=== PATIENT | male | born 1950 | race Caucasian/White ===

== ENCOUNTER → 2016-08-03 | Outpatient (CLI) | payer MEDICARE, OTHER ==
--- NOTE | 2016-08-03 19:49 | MR ---
MR right hip HISTORY: Limited range of motion, pain Multiplanar multisequence imaging obtained through the pelvis with small [id number]-ao-cryn imaging throug h the right hip. No comparisons Large hydroceles are noted incidentally within the scrotum. There is abnormal fluid signal present within the level of the origin of the hamstring conjoined tend on, areas of abnormal increased signal present within the tendon compatible with tendinopathy and pos sibly partial tear, avulsion injury. No sizable hip effusion. Suspect articular cartilage signal is m aintained. Difficult to exclude labral tear, there are areas of abnormal increased signal involving t he acetabulum laterally compatible with geode formation, there may be degenerative signal within the acetabular michelle, para labral cyst on the right suggesting labral tear. Cystic focus present in the r ight hemipelvis measures approximately 3.2 cm which may represent Hutch diverticulum. Bone marrow sig nal is maintained. IMPRESSION: Tear of the conjoined tendon, correlate for avulsion injury of the hamstring musculature on the right. Possible labral tear as described. Bilateral hydroceles.
== END | disposition home or self-care (01) ==
LOC: RADMRIMAIN 11:56
PROVIDERS: ATTEND Orthopaedic Surgery
DX: S76.011A Strain of muscle, fascia and tendon of right hip, initial encounter (principal)

== ENCOUNTER → 2016-10-05 | Outpatient (CLI) | payer MEDICARE, OTHER ==
[2016-10-05 14:01] LABS: Blood Urea Nitrogen 16 mg/dL (9-20); Non-African American GFR(MDRD) >60 (>60 ml/min/1.73 sqM)
--- NOTE | 2016-10-05 15:00 | CT ---
EXAMINATION TYPE: CT soft tissue neck w con DATE OF EXAM: 10/05/2016 2:51 PM HISTORY: Lymphadenopathy per order, neck swelling. COMPARISON: NONE CT DLP: A 93.3 mGycm. Automated Exposure Control for Dose Reduction was Utilized. TECHNIQUE: CT scan of the neck is performed with IV Contrast, patient injected with 100 mL of Omnipa que 300, axial images are obtained, coronal and sagittal reformatted images are reviewed. FINDINGS: Airway: Mild underlying emphysematous change in lung apices is seen. Parotid/submandibular glands: Metallic BBs are placed at level of palpable abnormality bilateral sub mandibular region and show no worrisome solid or cystic mass or fluid collection at this level. No laird spicious adenopathy is present. There are symmetric and normal-appearing submandibular glands noted a t this level. Parotid glands are symmetric and felt unremarkable bilaterally. Carotid/Vascular Structures: There is moderate mixed plaque at bilateral carotid bulbs slightly more prominent on the right versus left side, no greater than 50% stenosis in either internal carotid rajan ry is seen. Osseous Structures: There is moderate to severe spurring and disc space narrowing at C5-C6 and C6-C7 levels. Other: There are some scattered subcentimeter lymph nodes throughout the neck bilaterally. No suspici ous greater than 1 cm neck adenopathy is clearly seen. IMPRESSION: No worrisome mass or adenopathy is clearly identified.
== END | disposition home or self-care (01) ==
LOC: RADCTMAIN 13:07
PROVIDERS: ATTEND Surgery
DX: R59.1 Generalized enlarged lymph nodes (principal)
CPT/HCPCS: 82565; 84520; 70491; 36415; Q9967

== ENCOUNTER 2017-02-09 13:14 | Emergency (ER) | payer MEDICARE, OTHER ==
[2017-02-09 13:30] VITALS: RESP 18
--- NOTE | 2017-02-09 14:05 | ED ---
General Adult HPI - General Chief complaint: Wound/Laceration Stated complaint: post op incision problem/Male Time Seen by Provider: 02/09/17 13:55 Source: patient, RN notes reviewed Mode of arrival: wheelchair Limitations: no limitations - History of Present Illness Initial comments: Patient is a 66-year-old male status post testicular surgery that occurred 10 days ago, who presents emergency room today with a chief complaint of one of the stitches popping and having some bleeding from the area. He does admit that he had a hydrocele repaired on the left testicle.. Also admits that he had a sperm cyst removed on the right. He states that today he noticed that he' s had some more bleeding coming from the left side of the scrotum. States feels like a dissolving states may have dissolved too quickly. Denies any other complaints or symptoms at this time. He states he has been able to control bleeding noted at this time is no longer bleeding. Does admit that he takes Effient at home Patient denies any recent fever, chills, shortness of breath, chest pain, back pain, abdominal pain, nausea or vomiting, numbness or tingling, dysuria or hematuria, constipation or diarrhea, headaches or visual changes, or any other complaints. - Related Data Home Medications Medication Instructions Recorded Confirmed Cholecalciferol [Vitamin D3] 1,000 unit PO DAILY 11/25/15 01/02/16 Glucosam/Abebe-Msm1/C/Terry/Bosw 1 tab PO DAILY 11/25/15 01/02/16 [Glucosamine-Chondroitin Tablet] Vitamin B Complex 1 cap PO DAILY 11/25/15 01/02/16 Vitamin E 100 unit PO DAILY 11/25/15 01/02/16 Calcium Carbonate [Calcium] 600 mg PO DAILY 01/02/16 01/02/16 Cod Liver Oil 1 cap PO DAILY 01/02/16 01/02/16 Cysteine HCl [l-Cysteine] 500 mg PO DAILY 01/02/16 01/02/16 Aspirin 81 mg PO BID 02/09/17 02/09/17 Previous Rx's Medication Instructions Recorded Prasugrel [Effient] 10 mg PO DAILY #90 tablet 01/03/16 Allergies Allergy/AdvReac Type Severity Reaction Status Date / Time clopidogrel [From Plavix] Allergy Severe Anaphylaxis Verified 02/09/17 14:09 Review of Systems ROS Statement: Those systems with pertinent positive or pertinent negative responses have been documented in the HPI. ROS Other: All systems not noted in ROS Statement are negative. Past Medical History Past Medical History: COPD, Hypertension Additional Past Medical History / Comment(s): chest pain History of Any Multi-Drug Resistant Organisms: None Reported Past Surgical History: Prostate Surgery Additional Past Surgical History / Comment(s): left shoulder Past Psychological History: No Psychological Hx Reported Smoking Status: Former smoker Past Alcohol Use History: None Reported Past Drug Use History: None Reported - Past Family History Brother(s) Family Medical History: Cancer Additional Family Medical History / Comment(s): PROSTATE Sister(s) Family Medical History: Myocardial Infarction ([place]) Mother Family Medical History: Myocardial Infarction ([place]) Father Family Medical History: CVA/TIA General Exam - General Exam Comments Initial Comments: General: The patient is awake and alert, in no distress, and does not appear acutely ill. Eye: Pupils are equal, round and reactive to light, extra-ocular movements are intact. No nystagmus. There is normal conjunctiva bilaterally. No signs of icterus. Ears, nose, mouth and throat: There are moist mucous membranes and no oral lesions. Neck: The neck is supple, there is no tenderness or JVD. Cardiovascular: There is a regular rate and rhythm. No murmur, rub or gallop is appreciated. Respiratory: Lungs are clear to auscultation, respirations are non-labored, breath sounds are equal. No wheezes, stridor, rales, or rhonchi. Musculoskeletal: Normal ROM, no tenderness. Strength 5/5. Sensation intact. Pulses equal bilaterally 2+. Neurological: A&O x 3. CN II-XII intact, There are no obvious motor or sensory deficits. Coordination appears grossly intact. Speech is normal. Skin: Skin is warm and dry and no rashes or lesions are noted. Psychiatric: Cooperative, appropriate mood & affect, normal judgment. : Patient does have some swelling after surgery to left side of the scrotum. Does have a surgical incision which appears to be healing well. No active bleeding at this time. Small area to the lateral aspect that seems to be slightly dehisced. Limitations: no limitations Course Vital Signs 02/09/17 13:26 Temperature 98.2 F Pulse Rate 65 Respiratory 18 Rate Blood Pressure 101/57 O2 Sat by Pulse 96 Oximetry Medical Decision Making - Medical Decision Making Incision site was closed with Dermabond here in the emergency room. No active bleeding at this time. Patient resting comfortably. Patient is advised follow- up with his neurologist tomorrow. Advised return here to the emergency room symptoms increase or worsen or for any other concerns. Patient states understanding and is in agreement. Disposition Clinical Impression: Postop check Disposition: HOME SELF-CARE Condition: Good Additional Instructions: Please allow the glue to fall off on its own over the next 3-5 days. Please also up with your urologist over the next 1-2 days. Please return here to the emergency room for any other concerns. Referrals: Sahra Galdamez MD [Primary Care Provider] - 1-2 days Jalen Lancaster MD [STAFF PHYSICIAN] - 1-2 days Time of Disposition: 14:22
[2017-02-09] MEDS ORDERED: TOPICAL SKIN ADHESIVE 1 EACH AMP TOPICAL ONE (14:12)
[2017-02-09 14:28] VITALS: BP 159/74; PULSE 53; TEMP 98
== END 2017-02-09 14:29 | disposition home or self-care (01) ==
LOC: EC 13:14
DX: N99.89 Other postprocedural complications and disorders of genitourinary system (principal); Z79.82 Long term (current) use of aspirin; Z79.899 Other long term (current) drug therapy
CPT/HCPCS: 12020; 99283

== ENCOUNTER 2017-02-10 17:02 | Emergency (ER) | payer MEDICARE, OTHER ==
[2017-02-10 17:30] VITALS: RESP 18
[2017-02-10] MEDS ORDERED: TOPICAL SKIN ADHESIVE 1 EACH AMP TOPICAL ONE (17:56)
--- NOTE | 2017-02-10 18:01 | ED ---
General Adult HPI - General Chief complaint: Recheck/Abnormal Lab/Rx Stated complaint: Urogenital Time Seen by Provider: 02/10/17 17:52 Source: patient, RN notes reviewed Mode of arrival: ambulatory Limitations: no limitations - History of Present Illness Initial comments: 66-year-old male presents to the emergency department with a chief complaint of left testicular bleeding. Patient states that he had a hydrocele repair in one of his stitches came out. Patient states he came in yesterday for they put Dermabond on to Dermabond peeled off today. Patient states started to bleed again so he was concerned. Patient states there is no pain or discomfort he denies any swelling or redness around the area. Patient was concerned due to his symptoms so he thought that he should be evaluated.Patient denies any recent fever, chills, shortness of breath, chest pain, back pain, abdominal pain , nausea vomiting, numbness or tingling, dysuria or hematuria, constipation or diarrhea, headaches or visual changes, or any other current symptoms. - Related Data Home Medications Medication Instructions Recorded Confirmed Cholecalciferol [Vitamin D3] 1,000 unit PO DAILY 11/25/15 02/09/17 Glucosam/Abebe-Msm1/C/Terry/Bosw 1 tab PO DAILY 11/25/15 02/09/17 [Glucosamine-Chondroitin Tablet] Vitamin B Complex 1 cap PO DAILY 11/25/15 02/09/17 Vitamin E 100 unit PO DAILY 11/25/15 02/09/17 Calcium Carbonate [Calcium] 600 mg PO DAILY 01/02/16 02/09/17 Cod Liver Oil 1 cap PO DAILY 01/02/16 02/09/17 Cysteine HCl [l-Cysteine] 500 mg PO DAILY 01/02/16 02/09/17 Aspirin 81 mg PO BID 02/09/17 02/09/17 Previous Rx's Medication Instructions Recorded Prasugrel [Effient] 10 mg PO DAILY #90 tablet 01/03/16 Allergies Allergy/AdvReac Type Severity Reaction Status Date / Time clopidogrel [From Plavix] Allergy Severe Anaphylaxis Verified 02/10/17 17:30 Review of Systems ROS Statement: Those systems with pertinent positive or pertinent negative responses have been documented in the HPI. ROS Other: All systems not noted in ROS Statement are negative. Past Medical History Past Medical History: COPD, Hypertension Additional Past Medical History / Comment(s): chest pain History of Any Multi-Drug Resistant Organisms: None Reported Past Surgical History: Prostate Surgery Additional Past Surgical History / Comment(s): left shoulder, hydrocele Past Psychological History: No Psychological Hx Reported Smoking Status: Former smoker Past Alcohol Use History: None Reported Past Drug Use History: None Reported - Past Family History Brother(s) Family Medical History: Cancer Additional Family Medical History / Comment(s): PROSTATE Sister(s) Family Medical History: Myocardial Infarction ([place]) Mother Family Medical History: Myocardial Infarction ([place]) Father Family Medical History: CVA/TIA General Exam Limitations: no limitations General appearance: alert, in no apparent distress Neck exam: Present: normal inspection. Absent: tenderness, meningismus, lymphadenopathy Respiratory exam: Absent: respiratory distress Cardiovascular Exam: Present: regular rate GI/Abdominal exam: Present: soft, normal bowel sounds. Absent: distended, tenderness, guarding, rebound, rigid exam: Present: vertical testicular lie. Absent: normal inspection (Patient does appear to have a healing surgical incision to the left testicle area.), testicular tenderness, urethral discharge, scrotal swelling Neurological exam: Present: alert, oriented X3 Psychiatric exam: Present: normal affect, normal mood Skin exam: Present: warm, dry, intact, normal color. Absent: rash Course Vital Signs 02/10/17 17:25 Temperature 98.3 F Pulse Rate 58 L Respiratory 18 Rate Blood Pressure 108/61 O2 Sat by Pulse 97 Oximetry Procedures - Procedures Initial comment: The area was cleaned and prepped. Dermabond was applied over the area. Patient tolerated well. Medical Decision Making - Medical Decision Making 66-year-old male presents from surgical incision site. This time Dermabond was placed to the area. He discussed care follow-up return parameters all the patient's questions. He stated he understood. Patient will be discharged home. We did discuss close follow-up with his urologist in the morning. Disposition Clinical Impression: Postop check, Bleeding from wound Disposition: HOME SELF-CARE Condition: Stable Instructions: Skin Adhesive Care (ED) Additional Instructions: Please use medication as discussed. Please follow up with family doctor if symptoms have not improved over the next two days. Please return to the emergency room if your symptoms increase or worsen or for any other concerns. Referrals: Sahra Galdamez MD [Primary Care Provider] - 1-2 days Kamer,Xavier, MD [STAFF PHYSICIAN] - 1-2 days Time of Disposition: 18:31
[2017-02-10 18:45] VITALS: BP 113/75; PULSE 57; TEMP 97.4
== END 2017-02-10 18:46 | disposition home or self-care (01) ==
LOC: EC 17:02
DX: N99.820 Postprocedural hemorrhage of a genitourinary system organ or structure following a genitourinary system procedure (principal); Z87.891 Personal history of nicotine dependence; Z79.82 Long term (current) use of aspirin; Z79.899 Other long term (current) drug therapy; Z88.8 Allergy status to other drugs, medicaments and biological substances
CPT/HCPCS: 12020; 99283

== ENCOUNTER 2021-02-01 11:57 | Emergency (ER) | payer MEDICARE, OTHER ==
[2021-02-01 12:20] VITALS: BP 118/64; PULSE 69; RESP 16; TEMP 98.2
[2021-02-01] MEDS ORDERED: predniSONE 50 MG TAB PO STA (13:42)
--- NOTE | 2021-02-01 13:45 | ED ---
General Adult HPI - General Chief complaint: Skin/Abscess/Foreign Body Stated complaint: rash Time Seen by Provider: 02/01/21 12:48 Source: patient, RN notes reviewed, old records reviewed Mode of arrival: ambulatory Limitations: no limitations - History of Present Illness Initial comments: 70-year-old male with a past medical history of COPD, hypertension presents to the emergency room for a chief complaint of rash. Patient reports he has had a generalized distress for 2 months now. States it is on his inner arms and lower legs. States it is in his groin. Patient does not feel it is itching. Patient states this started after his cold that injection. Patient denies any signs of the lips tongue or throat. Denies any new medications. Denies any new detergents or soaps.Patient has no other complaints at this time including shortness of breath, chest pain, abdominal pain, nausea or vomiting, headache, or visual changes. - Related Data Home Medications Medication Instructions Recorded Confirmed Cholecalciferol [Vitamin D3 (25 1,000 unit PO DAILY 11/25/15 02/09/17 Mcg = 1000 Iu)] Glucosam/Abebe-Msm1/C/Terry/Bosw 1 tab PO DAILY 11/25/15 02/09/17 [Glucosamine-Chondroitin Tablet] Vitamin B Complex 1 cap PO DAILY 11/25/15 02/09/17 Vitamin E 100 unit PO DAILY 11/25/15 02/09/17 Calcium Carbonate [Calcium] 600 mg PO DAILY 01/02/16 02/09/17 Cod Liver Oil 1 cap PO DAILY 01/02/16 02/09/17 Cysteine HCl [l-Cysteine] 500 mg PO DAILY 01/02/16 02/09/17 Aspirin 81 mg PO BID 02/09/17 02/09/17 Previous Rx's Medication Instructions Recorded Prasugrel [Effient] 10 mg PO DAILY #90 tablet 01/03/16 predniSONE 50 mg PO DAILY #5 tablet 02/01/21 Allergies Allergy/AdvReac Type Severity Reaction Status Date / Time clopidogrel [From Plavix] Allergy Severe Anaphylaxis Verified 02/01/21 12:20 Review of Systems ROS Statement: Those systems with pertinent positive or pertinent negative responses have been documented in the HPI. ROS Other: All systems not noted in ROS Statement are negative. Past Medical History Past Medical History: COPD, Hypertension Additional Past Medical History / Comment(s): chest pain History of Any Multi-Drug Resistant Organisms: None Reported Past Surgical History: Prostate Surgery Additional Past Surgical History / Comment(s): left shoulder, hydrocele Past Psychological History: No Psychological Hx Reported Smoking Status: Former smoker Past Alcohol Use History: None Reported Past Drug Use History: None Reported - Past Family History Brother(s) Family Medical History: Cancer Additional Family Medical History / Comment(s): PROSTATE Sister(s) Family Medical History: Myocardial Infarction ([place]) Mother Family Medical History: Myocardial Infarction ([place]) Father Family Medical History: CVA/TIA General Exam Limitations: no limitations General appearance: alert, in no apparent distress Head exam: Present: atraumatic, normocephalic, normal inspection Eye exam: Present: normal appearance, PERRL, EOMI. Absent: scleral icterus, conjunctival injection, periorbital swelling ENT exam: Present: normal exam, mucous membranes moist Neck exam: Present: normal inspection, full ROM. Absent: tenderness, meningismus, lymphadenopathy Respiratory exam: Present: normal lung sounds bilaterally. Absent: respiratory distress, wheezes, rales, rhonchi, stridor Cardiovascular Exam: Present: regular rate, normal rhythm, normal heart sounds. Absent: systolic murmur, diastolic murmur, rubs, gallop, clicks GI/Abdominal exam: Present: soft, normal bowel sounds. Absent: distended, tenderness, guarding, rebound, rigid Skin exam: Present: rash (Erythematous papular rash noted on the volar forearms bilaterally as well as in her upper and lower legs. No rash noted on the abdomen or back.) Course Vital Signs 02/01/21 12:17 Temperature 98.2 F Pulse Rate 69 Respiratory 16 Rate Blood Pressure 118/64 O2 Sat by Pulse 96 Oximetry Medical Decision Making - Medical Decision Making Vitals are stable. No constitutional symptoms. We will try patient on a steroid. Recommend that he follow up with dermatology. He will return for any worsening symptoms. Disposition Clinical Impression: Rash Disposition: HOME SELF-CARE Condition: Good Instructions (If sedation given, give patient instructions): Acute Rash (ED) Additional Instructions: Please take steroid as directed. Follow up with dermatology. Return to the emergency room for any worsening symptoms. Prescriptions: predniSONE 50 mg PO DAILY #5 tablet Is patient prescribed a controlled substance at d/c from ED?: No Referrals: Channing Jang MD [STAFF PHYSICIAN] - 1-2 days Time of Disposition: 13:44
== END 2021-02-01 13:52 | disposition home or self-care (01) ==
LOC: EC 11:57
DX: R21 Rash and other nonspecific skin eruption (principal); I10 Essential (primary) hypertension; J44.9 Chronic obstructive pulmonary disease, unspecified; Z88.8 Allergy status to other drugs, medicaments and biological substances; Z87.891 Personal history of nicotine dependence
CPT/HCPCS: 99282; J7512

== ENCOUNTER 2022-05-07 09:55 | Inpatient (IN) | payer MEDICARE ==
[2022-05-07 10:50] LABS: Basophils # (A) 0.1 k/uL (0-0.2); Basophils % (A) 1 %; Eosinophils # (A) 0.2 k/uL (0-0.7); Eosinophils % (A) 3 %; HGB 15.3 gm/dL (13.0-17.5); Lymphocytes # (A) 1.2 k/uL (1.0-4.8); Lymphocytes % (A) 19 %; MCH 31.8 pg (25.0-35.0); MCV 93.6 fL (80.0-100.0); Mean Platelet Volume 8.3; Monocytes # (A) 0.5 k/uL (0-1.0); Monocytes % (A) 8 %; Neutrophils # (A) 4.3 k/uL (1.3-7.7); Neutrophils % (A) 66 %; Platelet Count 216 k/uL (150-450); RBC 4.81 m/uL (4.30-5.90); RDW 12.5 % (11.5-15.5); WBC 6.5 k/uL (3.8-10.6)
[2022-05-07 11:04] LABS: Partial Thromboplastin Time 25.8 sec (22.0-30.0); Prothrombin Time 10.5 sec (9.0-12.0)
[2022-05-07 11:07] LABS: ALT 16 U/L (4-49); AST 20 U/L (17-59); African American GFR (CKD) >90 (>60 ml/min/1.73 sqM); Albumin 4.3 g/dL (3.5-5.0); Alkaline Phosphatase 66 U/L (38-126); Anion Gap 10 mmol/L; Blood Urea Nitrogen 9 mg/dL (9-20); Calcium 8.7 mg/dL (8.4-10.2); Carbon Dioxide 28 mmol/L (22-30); Chloride 101 mmol/L (98-107); Glucose 112 mg/dL (74-99); Non-African American GFR(CKD) 89 (>60 ml/min/1.73 sqM); Potassium 4.5 mmol/L (3.5-5.1); Sodium 139 mmol/L (137-145); Total Bilirubin 0.6 mg/dL (0.2-1.3); Total Protein 6.9 g/dL (6.3-8.2)
--- NOTE | 2022-05-07 11:20 | CT ---
EXAMINATION TYPE: CT brain wo con DATE OF EXAM: 05/07/2022 COMPARISON: None HISTORY: CODE STROKE. Right arm numbness and tingling started this am CT DLP: 1206.00 mGycm Automated exposure control for dose reduction was used. Helical imaging through the brain FINDINGS: There is no hemorrhage or hydrocephalus. Periventricular white matter shows patchy low attenuation. H ead of the caudate on the left, thalamus on the right show focal areas of low-attenuation likely due to small lacunar infarcts. No mass effect. The calvarium is intact. Paranasal sinuses and mastoid air cells as visualized are normal. Cortical atrophy is likely age-related. IMPRESSION: AGE-RELATED CHANGES OF ATROPHY AND PROBABLE CHRONIC SMALL VESSEL ISCHEMIA, CONSIDER BRAIN MRI FOR BET TER EVALUATION INDICATED
--- NOTE | 2022-05-07 11:21 | XR ---
EXAMINATION TYPE: XR chest 2V DATE OF EXAM: 05/07/2022 COMPARISON: Chest x-ray 01/02/2016, CT 10/05/2016 HISTORY: Right arm numbness and tingling TECHNIQUE: Frontal and lateral views of the chest are obtained. FINDINGS: There is no focal air space opacity, pleural effusion, or pneumothorax seen. The cardiac silhouette size is within normal limits. Prominent lung volumes suggest underlying COPD. There is tho racic spondylosis. The aorta is dense. There are overlying leads. The osseous structures are intact. IMPRESSION: No acute cardiopulmonary process. There is underlying emphysema.
--- NOTE | 2022-05-07 11:29 | ED ---
General Adult HPI - General Chief complaint: Neuro Symptoms/Deficit Stated complaint: right arm numbness Time Seen by Provider: 05/07/22 10:08 Source: patient Mode of arrival: wheelchair Limitations: no limitations - History of Present Illness Initial comments: 72 year-old male patient presents to the emergency department for evaluation of right arm weakness. Patient states he woke this morning around 0600 and he was unable to move his right arm. States that sensation was diminished. States after about an hour he was able to move the thumb, then the whole hand, and he has since regained most function. States that his "tricep" feels weak and uncoord inated. He denies any right leg weakness with this. States he was able to walk without difficulty. He was alone and is unsure if his speech or face was affected. He does admit to taking tylenol PM last night and states that he slept in one position all night on the right arm. He denies any headache, dizziness, blurred, or double vision. Patient denies any recent rash, fever, chills, cough, shortness of breath, chest pain, abdominal pain, nausea, vomiting, diarrhea, constipation, back pain, hematuria, dysuria, urinary urgency, urinary frequency, or any other complaints. - Related Data Home Medications Medication Instructions Recorded Confirmed Aspirin 243 mg PO BID 02/09/17 05/07/22 Finasteride [Proscar] 5 mg PO HS 05/07/22 05/07/22 Multivitamins, Thera [Multivitamin 1 tab PO DAILY 05/07/22 05/07/22 (formulary)] Tamsulosin [Flomax] 0.4 mg PO DAILY 05/07/22 05/07/22 Ubidecarenone [Q-Sorb Co Q-10] 200 mg PO DAILY 05/07/22 05/07/22 Allergies Allergy/AdvReac Type Severity Reaction Status Date / Time clopidogrel [From Plavix] Allergy Severe Anaphylaxis Verified 05/07/22 12:41 Review of Systems ROS Statement: Those systems with pertinent positive or pertinent negative responses have been documented in the HPI. ROS Other: All systems not noted in ROS Statement are negative. Past Medical History Past Medical History: COPD, Hypertension Additional Past Medical History / Comment(s): chest pain History of Any Multi-Drug Resistant Organisms: None Reported Past Surgical History: Prostate Surgery Additional Past Surgical History / Comment(s): left shoulder, hydrocele Past Psychological History: No Psychological Hx Reported Smoking Status: Former smoker Past Alcohol Use History: None Reported Past Drug Use History: None Reported - Past Family History Brother(s) Family Medical History: Cancer Additional Family Medical History / Comment(s): PROSTATE Sister(s) Family Medical History: Myocardial Infarction ([place]) Mother Family Medical History: Myocardial Infarction ([place]) Father Family Medical History: CVA/TIA General Exam Limitations: no limitations General appearance: alert, in no apparent distress, other (This is a well- developed, well-nourished adult male patient in no acute distress.) Eye exam: Present: normal appearance, PERRL, EOMI. Absent: scleral icterus, conjunctival injection, periorbital swelling ENT exam: Present: normal exam, normal oropharynx, mucous membranes moist Respiratory exam: Present: normal lung sounds bilaterally. Absent: respiratory distress, wheezes, rales, rhonchi, stridor Cardiovascular Exam: Present: regular rate, normal rhythm, normal heart sounds. Absent: systolic murmur, diastolic murmur, rubs, gallop, clicks GI/Abdominal exam: Present: soft, normal bowel sounds. Absent: distended, tenderness, guarding, rebound, rigid Neurological exam: Present: alert, oriented X3, CN II-XII intact Expanded Speech: Present: fluid speech Cranial nerves: EOM's Intact: Normal, Tongue Deviation: Normal, Nystagmus: No rmal Sensory exam: Upper Extremity Light Touch: Abnormal Right, Lower Extremity Light Touch: Normal Motor strength exam: RUE: 5, LUE: 5, RLE: 5, LLE: 5 Eye Response: (4) open spontaneously Motor Response: (6) obeys commands Verbal Response: (5) oriented Psychiatric exam: Present: normal affect, normal mood Skin exam: Present: warm, dry, intact, normal color. Absent: rash Course Vital Signs 05/07/22 05/07/22 10:00 11:15 Temperature 97.6 F Pulse Rate 70 68 Respiratory 16 20 Rate Blood Pressure 131/70 124/76 O2 Sat by Pulse 99 94 L Oximetry EKG Findings - EKG Comments: EKG Findings:: EKG obtained at 1032 shows sinus bradycardia with a rate of 59, AK interval 159, QRS duration 96, QT 405, QTC 405. No evidence of ST elevation or depression. Medical Decision Making - Medical Decision Making 72 year-old male patient presents for evaluation of right arm weakness. When he woke this morning around 0600 he woke from sleep and his right arm was paralyzed, his function slowly returned over the next couple of hours. Last known well was prior to bed around 11pm. He is unsure if there was any facial involvement or speech difficulty as he was alone. He also admitted that he took Tylenol PM before bed, slept in one position, on the right arm. Upon exam here he exhibits mild right arm drift and altered sensation to the right arm for an NIH of 2. Labs are unremarkable. CT brain and CT angio head and neck were unremarkable. Patient will be admitted for CVA. Differential does include Monday Night Palsy since history does include laying on the arm all night long. Neurology will be consulted. My attending is Dr. Abreu. - Lab Data Result diagrams: 05/07/22 10:43 05/07/22 10:43 Lab Results 05/07/22 05/07/22 05/07/22 Range/Units 10:43 10:43 10:43 WBC 6.5 (3.8-10.6) k/uL RBC 4.81 (4.30-5.90) m/uL Hgb 15.3 (13.0-17.5) gm/dL Hct 45.0 (39.0-53.0) % MCV 93.6 (80.0-100.0) fL MCH 31.8 (25.0-35.0) pg MCHC 34.0 (31.0-37.0) g/dL RDW 12.5 (11.5-15.5) % Plt Count 216 (150-450) k/uL MPV 8.3 Neutrophils % 66 % Lymphocytes % 19 % Monocytes % 8 % Eosinophils % 3 % Basophils % 1 % Neutrophils # 4.3 (1.3-7.7) k/uL Lymphocytes # 1.2 (1.0-4.8) k/uL Monocytes # 0.5 (0-1.0) k/uL Eosinophils # 0.2 (0-0.7) k/uL Basophils # 0.1 (0-0.2) k/uL PT 10.5 (9.0-12.0) sec INR 1.0 (<1.2) APTT 25.8 (22.0-30.0) sec Sodium 139 (137-145) mmol/L Potassium 4.5 (3.5-5.1) mmol/L Chloride 101 (98-107) mmol/L Carbon Dioxide 28 (22-30) mmol/L Anion Gap 10 mmol/L BUN 9 (9-20) mg/dL Creatinine 0.79 (0.66-1.25) mg/dL Est GFR (CKD-EPI)AfAm >90 (>60 ml/min/1.73 sqM) Est GFR (CKD-EPI)NonAf 89 (>60 ml/min/1.73 sqM) Glucose 112 H (74-99) mg/dL Calcium 8.7 (8.4-10.2) mg/dL Total Bilirubin 0.6 (0.2-1.3) mg/dL AST 20 (17-59) U/L ALT 16 (4-49) U/L Alkaline Phosphatase 66 (38-126) U/L Troponin I (0.000-0.034) ng/mL Total Protein 6.9 (6.3-8.2) g/dL Albumin 4.3 (3.5-5.0) g/dL 05/07/22 Range/Units 10:43 WBC (3.8-10.6) k/uL RBC (4.30-5.90) m/uL Hgb (13.0-17.5) gm/dL Hct (39.0-53.0) % MCV (80.0-100.0) fL MCH (25.0-35.0) pg MCHC (31.0-37.0) g/dL RDW (11.5-15.5) % Plt Count (150-450) k/uL MPV Neutrophils % % Lymphocytes % % Monocytes % % Eosinophils % % Basophils % % Neutrophils # (1.3-7.7) k/uL Lymphocytes # (1.0-4.8) k/uL Monocytes # (0-1.0) k/uL Eosinophils # (0-0.7) k/uL Basophils # (0-0.2) k/uL PT (9.0-12.0) sec INR (<1.2) APTT (22.0-30.0) sec Sodium (137-145) mmol/L Potassium (3.5-5.1) mmol/L Chloride (98-107) mmol/L Carbon Dioxide (22-30) mmol/L Anion Gap mmol/L BUN (9-20) mg/dL Creatinine (0.66-1.25) mg/dL Est GFR (CKD-EPI)AfAm (>60 ml/min/1.73 sqM) Est GFR (CKD-EPI)NonAf (>60 ml/min/1.73 sqM) Glucose (74-99) mg/dL Calcium (8.4-10.2) mg/dL Total Bilirubin (0.2-1.3) mg/dL AST (17-59) U/L ALT (4-49) U/L Alkaline Phosphatase (38-126) U/L Troponin I <0.012 (0.000-0.034) ng/mL Total Protein (6.3-8.2) g/dL Albumin (3.5-5.0) g/dL - Radiology Data Radiology results: report reviewed, image reviewed CT angiogram head and neck were obtained. Report was reviewed in its entirety. Impression by Dr. Contreras shows no significant abnormality. Two-view x-ray of the chest is obtained. Report was reviewed in its entirety. Impression by Dr. Contreras shows underlying emphysema. No acute cardiopulmonary process. CT brain without contrast is obtained. Report was reviewed in its entirety. Impression by Dr. Contreras shows age-related changes of atrophy and probable chronic small vessel ischemia, consider brain MRI for better evaluation as ind icated. Disposition Clinical Impression: CVA (cerebral vascular accident) Disposition: ADMITTED IP TO THIS [facility] Condition: Serious Decision to Admit Reason: Admit from EC Decision Date: 05/07/22 Decision Time: 13:02
--- NOTE | 2022-05-07 12:22 | CT ---
EXAMINATION TYPE: CT angio head neck DATE OF EXAM: 05/07/2022 HISTORY: CODE STROKE, Right arm weakness COMPARISON: CT brain same date, CT soft tissue neck 10/05/2016 CT DLP: 728.7 mGycm. Automated Exposure Control for Dose Reduction was Utilized. TECHNIQUE: CTA scan of the head and neck is performed without and with IV Contrast, patient injected with 65 ml mL of Isovue 370, axial images are obtained, coronal and sagittal reformatted images are reviewed. 3D reconstructed images are created on an independent workstation and reviewed. FINDINGS: Carotid/Vascular Structures: The transverse aorta is patent. There are 4 super aortic branch vessels. The innominate, left and right common carotid, left and right subclavian arteries are patent. The ri ght vertebral arteries are patent, vertebral arteries are codominant. There is no evident stenosis of the proximal internal carotid arteries, internal and external carotid arteries are patent. Within the brain anterior and posterior circulation are intact. There is no evident dissection, aneur ysm, stenosis, or embolus. Other: Degenerative disc changes with multilevel foraminal encroachment, uncovertebral joint hypertro phy noted. IMPRESSION: No significant abnormality is seen. NASCET criteria was used in interpretation of this exam?
[2022-05-07] MEDS ORDERED: NALOXONE 0.4 MG/ML 1 ML VIAL IV PRN (12:58)
[2022-05-07] MEDS: FINASTERIDE 5 MG TAB PO SCH (20:08)
--- NOTE | 2022-05-07 21:22 | P.HPIM ---
History of Present Illness H&P Date: 05/07/22 Chief Complaint: Right hand numbness or weakness Patient is a 72-year-old male with a known history of COPD, hypertension, abdominal aortic aneurysm, chronic left shoulder pain and prior history of smoking presents to ER with complaints of right arm weakness and numbness. P atient noticed symptoms as says he woke up this morning around 6 AM and was not improving. After about a couple hours patient was able to move his thumb and hold hand but still having significant weakness and numbness and patient to come to ER. Denied any injury or fall. Patient apparently took Tylenol for along with Benadryl last night and slept 7 hours straight on his right arm. Patient usually wakes up in the middle of the night for urination. Patient also felt very weak in the triceps as well. Denied any complaints of leg weakness. No slurred speech or difficulty speaking. No complaints of prior seizures. No double vision or blurred vision. Next and no fever no chills. No nausea vomiting abdominal pain or diarrhea. No headache or dizziness or lightheadedness. No dysuria or hematuria. . CT head in the ER showed age-related chronic changes and probable chronic small vessel ischemic changes. Consider brain MRI for a better visualization. Chest x-ray showed no acute cardiopulmonary process. Underlying emphysema. CT angiogram showed no underlying segment abnormality. Next an EKG showed sinus bradycardia Laboratory data showed WBC 6.4 hemoglobin 15.3 and platelets 216 Sodium 139 potassium 4.5 chloride 109 bicarb is 28 BUN 9 and creatinine 0.79 blood sugar is 112, troponin 1 negative Review of Systems Constitutional: Patient denies any fever or chills . No generalized weakness or weight loss. Abdomen: Patient denied nausea vomiting and diarrhea and abdominal pain. Cardiovascular: Patient denies any chest pain or short of breath no palpitations. Respiratory: patient denied any cough is from production. No shortness of breath Neurologic: Patient denied any numbness or tingling headache. Right upper extremity weakness and numbness Musculoskeletal: Patient denies any complaints of joint swelling or deformity. Skin: Negative Psychiatric: Negative Endocrine: No heat or cold intolerance. No recent weight gain. Genitourinary: No dysuria or hematuria. All other 14 point ROS negative except the above Past Medical History Past Medical History: COPD, Hypertension Additional Past Medical History / Comment(s): chest pain, abd aortic aneurysm History of Any Multi-Drug Resistant Organisms: None Reported Past Surgical History: Ablation, Heart Catheterization With Stent Additional Past Surgical History / Comment(s): left shoulder, hydrocele, prostate biopsy with cancer - no active tx. Past Anesthesia/Blood Transfusion Reactions: No Reported Reaction Date of Last Stent Placement:: unknown Past Psychological History: No Psychological Hx Reported Additional Psychological History / Comment(s): "anger toward certain people sometimes" Smoking Status: Former smoker Past Alcohol Use History: None Reported Past Drug Use History: None Reported - Past Family History Brother(s) Family Medical History: Cancer Additional Family Medical History / Comment(s): PROSTATE Sister(s) Family Medical History: Myocardial Infarction ([place]) Mother Family Medical History: Myocardial Infarction ([place]) Father Family Medical History: CVA/TIA Medications and Allergies Home Medications Medication Instructions Recorded Confirmed Type Aspirin 243 mg PO BID 02/09/17 05/07/22 History Finasteride [Proscar] 5 mg PO HS 05/07/22 05/07/22 History Multivitamins, Thera [Multivitamin 1 tab PO DAILY 05/07/22 05/07/22 History (formulary)] Tamsulosin [Flomax] 0.4 mg PO DAILY 05/07/22 05/07/22 History Ubidecarenone [Q-Sorb Co Q-10] 200 mg PO DAILY 05/07/22 05/07/22 History Allergies Allergy/AdvReac Type Severity Reaction Status Date / Time clopidogrel [From Plavix] Allergy Severe Anaphylaxis Verified 05/07/22 12:41 Physical Exam Vitals: Vital Signs Temp Pulse Pulse Resp BP BP Pulse Ox 05/07/22 20:00 97.6 F 56 L 16 114/65 96 05/07/22 17:07 97.5 F L 59 L 15 134/78 98 05/07/22 14:00 58 L 20 137/72 96 05/07/22 13:30 60 18 138/79 96 05/07/22 13:00 57 L 20 131/82 95 05/07/22 12:30 63 18 132/79 96 05/07/22 12:15 58 L 20 136/79 95 05/07/22 12:00 60 20 128/83 95 05/07/22 11:45 57 L 18 130/76 95 05/07/22 11:30 53 L 18 127/74 96 05/07/22 11:15 68 20 124/76 94 L 05/07/22 10:00 97.6 F 70 16 131/70 99 Intake and Output 05/07/22 05/07/22 05/07/22 06:59 14:59 22:59 Intake Total 240 Balance 240 Intake: Oral 240 Other: Voiding Method Toilet Weight 92.986 kg 92.986 kg PHYSICAL EXAMINATION: Patient is lying in the bed comfortably, no acute distress, awake alert and oriented.. HEENT: Normocephalic. Neck is supple. Pupils reactive. Nostrils clear. Oral cavity is moist. Neck reveals no JVD, carotid bruits, or thyromegaly. CHEST EXAMINATION: Trachea is central. Symmetrical expansion. Lung lares clear to auscultation and percussion. CARDIAC: Normal S1, S2 with no gallops. No murmurs ABDOMEN: Soft. Bowel sounds normal. No organomegaly. No abdominal bruits. Extremities: reveal no edema. No clubbing or cyanosis Neurologically awake, alert, oriented x3 with well-coordinated movements. Right upper extremity weakness compared to left. Motor strength 5 out of 5. Skin: No rash or skin lesions. Psychiatric: Coperative. Nonsuicidal Musculoskeletal: No joint swelling or deformity. Normal range of motion. Results CBC & Chem 7: 05/07/22 10:43 05/07/22 10:43 Labs: Abnormal Lab Results - Last 24 Hours (Table) 05/07/22 Range/Units 10:43 Glucose 112 H (74-99) mg/dL Thrombosis Risk Factor Assmnt - DVT/VTE Prophylaxis DVT/VTE Prophylaxis: Pharmacologic Prophylaxis ordered - Choose All That Apply Each Risk Factor Represents 2 Points: Age 61-74 years Thrombosis Risk Factor Assessment Total Risk Factor Score: 2 Thrombosis Risk Factor Assessment Level: Low Risk Assessment and Plan Assessment: Right arm weakness and numbness. Rule out acute CVA. CT head and CT angiogram is negative. Thought to be due to prolonged compression while sleeping on the right arm. Hypertension COPD Abdominal aortic aneurysm Coronary artery disease with history of stent placement Prior history of smoking DVT prophylaxis with heparin subcu Plan: Patient will be continued on telemetry monitoring and continue with neuro checks every 4 hourly. Will be carried on aspirin and statins. Neurology was consulted. Complete neurologic workup including MRI of the brain was ordered. Follow-up B12 folate and A1c levels. TSH and lipid panel as well. Continue to monitor closely. Time with Patient: Greater than 30
[2022-05-07] MEDS: HEPARIN SODIUM,PORCINE/PF 5,000 UNIT/0.5 ML SYRINGE SQ SCH (23:59)
[2022-05-08] MEDS: TAMSULOSIN 0.4 MG CAP.ER.24H PO SCH (10:24)
[2022-05-08] MEDS: HEPARIN SODIUM,PORCINE/PF 5,000 UNIT/0.5 ML SYRINGE SQ SCH ×3 (10:24→23:49)
[2022-05-08] MEDS: ASPIRIN 81 MG PO SCH (10:24)
[2022-05-08 11:15] LABS: Chol/HDL Ratio 5.02 Ratio; LDL Cholesterol,Calculated 146.4 mg/dL (0.0-131.0)
[2022-05-08] MEDS: ACETAMINOPHEN TAB 325 MG TAB PO PRN ×2 (13:23→20:34)
--- NOTE | 2022-05-08 14:38 | P.CNNES ---
History of Present Illness Consult date: 05/08/22 Reason for Consult: Stroke History of Present Illness: The patient is a 72-year-old right-handed, male who is seen in neurologic consultation on May 08, 2022, via teleneurology. The patient is being seen because of concerns regarding stroke. Patient reports that he awoke in the morning on the day of presentation to the emergency department with complete paralysis of his right arm. He states that he took a Tylenol PM at bedtime and slept straight through 47 hours, laying on his right arm. He states that after he was up for about an hour he began to notice some movement in his right thumb. Then his fingers began to move. He has continued to have some improvement in the strength and movement of his right arm however it is certainly not back to its baseline. The patient also reports numbness in the arm as well. He feels as if he is having difficulty with coordination of his right arm. He reports having difficulty using his right arm/hand. He reports soreness involving his right shoulder. The patient denies any symptoms in his right leg. His left upper and lower extremity are fine also. The patient denies headache. There are no facial symptoms, no difficulty with speech or swallowing. No change or loss of vision. The patient denies a history of stroke and TIA. The patient does report that he frequently awakens with numbness in his hands. He reports currently experiencing mid back pain. CT scan of the brain was performed in the emergency department. Her is no evidence of acute hemorrhage or infarct. CT angiogram of the head and neck revealed no evidence of significant stenosis or large vessel occlusion. Past Medical History Past Medical History: COPD, Hypertension Additional Past Medical History / Comment(s): chest pain, abd aortic aneurysm History of Any Multi-Drug Resistant Organisms: None Reported Past Surgical History: Ablation, Heart Catheterization With Stent Additional Past Surgical History / Comment(s): left shoulder, hydrocele, prostate biopsy with cancer - no active tx. Past Anesthesia/Blood Transfusion Reactions: No Reported Reaction Date of Last Stent Placement:: unknown Past Psychological History: No Psychological Hx Reported Additional Psychological History / Comment(s): "anger toward certain people sometimes" Smoking Status: Former smoker Past Alcohol Use History: None Reported Past Drug Use History: None Reported - Past Family History Brother(s) Family Medical History: Cancer Additional Family Medical History / Comment(s): PROSTATE Sister(s) Family Medical History: Myocardial Infarction ([place]) Mother Family Medical History: Myocardial Infarction ([place]) Father Family Medical History: CVA/TIA Medications and Allergies Home Medications Medication Instructions Recorded Confirmed Type Aspirin 243 mg PO BID 02/09/17 05/07/22 History Finasteride [Proscar] 5 mg PO HS 05/07/22 05/07/22 History Multivitamins, Thera [Multivitamin 1 tab PO DAILY 05/07/22 05/07/22 History (formulary)] Tamsulosin [Flomax] 0.4 mg PO DAILY 05/07/22 05/07/22 History Ubidecarenone [Q-Sorb Co Q-10] 200 mg PO DAILY 05/07/22 05/07/22 History Allergies Allergy/AdvReac Type Severity Reaction Status Date / Time clopidogrel [From Plavix] Allergy Severe Anaphylaxis Verified 05/07/22 12:41 Physical Examination - Vital Signs Vital Signs: Vital Signs Temp Pulse Pulse Resp BP BP Pulse Ox 05/08/22 04:00 97.9 F 56 L 16 112/67 95 05/08/22 01:57 58 L 18 05/08/22 00:00 58 L 18 122/67 98 05/07/22 20:00 97.6 F 56 L 16 114/65 96 05/07/22 17:07 97.5 F L 59 L 15 134/78 98 05/07/22 14:00 58 L 20 137/72 96 05/07/22 13:30 60 18 138/79 96 05/07/22 13:00 57 L 20 131/82 95 05/07/22 12:30 63 18 132/79 96 05/07/22 12:15 58 L 20 136/79 95 05/07/22 12:00 60 20 128/83 95 05/07/22 11:45 57 L 18 130/76 95 05/07/22 11:30 53 L 18 127/74 96 05/07/22 11:15 68 20 124/76 94 L 05/07/22 10:00 97.6 F 70 16 131/70 99 Intake and Output 05/07/22 05/08/22 05/08/22 22:59 06:59 14:59 Intake Total 240 118 Balance 240 118 Intake: Oral 240 118 Other: Voiding Method Toilet Toilet # Voids 2 Weight 92.986 kg Gen.: The patient is reclining in the bed. He is well-nourished, well-developed and in no acute distress. HEENT: Head is atraumatic, normocephalic. Fundus not visualized. There is no scleral icterus. Mucous membranes are moist. Neck: Supple without carotid bruits Heart: Regular rate and rhythm Extremities: Without edema Neurological examination Mental status: The patient is awake, alert and oriented 3. His speech is clear. There is no dysarthria or aphasia. Cranial nerves: Pupils are equal at 1 mm and reactive. Visual lares are full to confrontation. Extraocular movements are intact. There is no nystagmus. There is diminished sensation to light touch in the left V2 distribution. There is no facial asymmetry. Hearing is grossly intact. Uvula and palate are midline. Shoulder shrug is symmetric. Tongue protrudes midline. Motor: Strength in the bilateral biceps, triceps, deltoid and wrist extensors is 5/5. Right senior business manager strength 5-/5. Bilateral lower extremity strength 5/5. Coordination: There is tremor and ataxia with [id number] testing, right > Left Sensation: Grossly intact to light touch throughout Deep tendon reflexes: Right upper extremity reflexes 2+/4+. Left upper extremity reflexes 1+/4+. Right patellar reflex 3+/4+. Left patellar reflex 1- 2+/4+. Left plantar response is flexor with the right being equivocal. Gait: Not assessed Results - Laboratory Findings CBC and BMP: 05/07/22 10:43 05/07/22 10:43 Abnormal Lab Findings: Abnormal Labs 05/07/22 10:43 Glucose 112 H - Diagnostic Findings Comments: imaging of CT brain and CT angiogram of head and neck were personally reviewed Assessment and Plan Assessment: 1. New onset right upper extremity weakness following reported prolonged compression. Neurologic examination findings are more consistent with a central etiology for the patient's right upper extremity weakness. Right upper extremity reflexes are more brisk at there is associated tremor and ataxia. If the patient's weakness was slowly related to compression, there would be no reflex asymmetry or, the right upper extremity reflexes would be diminished 2. History of coronary artery disease 3. History of hypertension Plan: 1. MRI of brain has been ordered 2. Stroke workup will be initiated including 2-D echocardiogram, lipid panel, hemoglobin A1c, TSH, physical and occupational therapy consultations 3. High-dose statin should be initiated 4. The patient has reportedly been taking aspirin 81 mg, 3 tablets twice daily following his cardiac stent placement. The patient reports adverse reaction to Plavix. If MRI is positive for stroke consider starting Brilinta Thank you for allowing us to participate in the care of this patient Dr. Griffith will assume neurologic coverage of this patient as of May 09, 2022 Time with Patient: Greater than 30 (spent 15 minutes examining patient, review ing imaging, labs, documentation and preparing note)
[2022-05-08] MEDS: FINASTERIDE 5 MG TAB PO SCH (20:34)
[2022-05-08] MEDS: ATORVASTATIN 40 MG TAB PO SCH ×2 (20:34→20:36)
--- NOTE | 2022-05-08 23:46 | P.PN ---
Subjective Progress Note Date: 05/08/22 Patient is a 72-year-old male with a known history of COPD, hypertension, abdominal aortic aneurysm, chronic left shoulder pain and prior history of smoking presents to ER with complaints of right arm weakness and numbness. Patient noticed symptoms as says he woke up this morning around 6 AM and was not improving. After about a couple hours patient was able to move his thumb and hold hand but still having significant weakness and numbness and patient to come to ER. Denied any injury or fall. Patient apparently took Tylenol for along with Benadryl last night and slept 7 hours straight on his right arm. Patient usually wakes up in the middle of the night for urination. Patient also felt very weak in the triceps as well. Denied any complaints of leg weakness. No slurred speech or difficulty speaking. No complaints of prior seizures. No double vision or blurred vision. Next and no fever no chills. No nausea vomiting abdominal pain or diarrhea. No headache or dizziness or lightheaded ness. No dysuria or hematuria. . CT head in the ER showed age-related chronic changes and probable chronic small vessel ischemic changes. Consider brain MRI for a better visualization. Chest x-ray showed no acute cardiopulmonary process. Underlying emphysema. CT angiogram showed no underlying segment abnormality. Next an EKG showed sinus bradycardia Laboratory data showed WBC 6.4 hemoglobin 15.3 and platelets 216 Sodium 139 potassium 4.5 chloride 109 bicarb is 28 BUN 9 and creatinine 0.79 b lood sugar is 112, troponin 1 negative 05/08/2022 Patient still having right upper extremity numbness and weakness. Patient states that he has been having tricuspid Muscle weakness. No complaints of leg weakness. No headache or dizziness lightheadedness. No neck pain. Neurology is is on board. MRI of the brain was ordered. Otherwise patient denied any chest pain or shortness of breath. No nausea vomiting or abdominal pain or diarrhea. Current medications reviewed. Objective - Vital Signs Vital signs: Vital Signs Temp 97.4 F L 05/08/22 15:43 Pulse 73 05/08/22 15:43 Resp 18 05/08/22 15:43 BP 115/67 05/08/22 15:43 Pulse Ox 97 05/08/22 15:43 FiO2 Intake & Output 05/07/22 05/08/22 05/08/22 18:59 06:59 18:59 Intake Total 240 776 Balance 240 776 Weight 92.986 kg Intake: Oral 240 776 Other: Voiding Method Toilet Toilet Toilet # Voids 2 2 # Bowel Movements 2 - Exam PHYSICAL EXAMINATION: Patient is lying in the bed comfortably, no acute distress, awake alert and oriented.. HEENT: Normocephalic. Neck is supple. Pupils reactive. Nostrils clear. Oral cavity is moist. Neck reveals no JVD, carotid bruits, or thyromegaly. CHEST EXAMINATION: Trachea is central. Symmetrical expansion. Lung lares clear to auscultation and percussion. CARDIAC: Normal S1, S2 with no gallops. No murmurs ABDOMEN: Soft. Bowel sounds normal. No organomegaly. No abdominal bruits. Extremities: reveal no edema. No clubbing or cyanosis Neurologically awake, alert, oriented x3 with well-coordinated movements. Right upper extremity weakness compared to left. Motor strength 5 out of 5. Skin: No rash or skin lesions. Psychiatric: Coperative. Nonsuicidal Musculoskeletal: No joint swelling or deformity. Normal range of motion. - Labs CBC & Chem 7: 05/07/22 10:43 05/07/22 10:43 Labs: Abnormal Lab Results - Last 24 Hours (Table) 05/08/22 Range/Units 06:28 Cholesterol 213.00 H (0.00-200.00) mg/dL LDL Cholesterol, Calc 146.4 H (0.0-131.0) mg/dL Assessment and Plan Assessment: Right arm weakness and numbness. Rule out acute CVA. CT head and CT angiogram is negative. Thought to be due to prolonged compression while sleeping on the right arm. Hypertension COPD Abdominal aortic aneurysm Coronary artery disease with history of stent placement Prior history of smoking DVT prophylaxis with heparin subcu Plan: Patient will be continued on telemetry monitoring and continue with neuro checks every 4 hourly. on aspirin and statins. Neurology was consulted. Complete neurologic workup including MRI of the brain was ordered. Follow-up B12 folate and A1c levels. TSH and lipid panel as well. Continue to monitor closely. Time with Patient: Greater than 30
[2022-05-09] MEDS: HEPARIN SODIUM,PORCINE/PF 5,000 UNIT/0.5 ML SYRINGE SQ SCH ×3 (08:32→23:37)
[2022-05-09] MEDS: TAMSULOSIN 0.4 MG CAP.ER.24H PO SCH (08:32)
[2022-05-09] MEDS: ASPIRIN 81 MG PO SCH (08:32)
[2022-05-09 09:18] LABS: Basophils % (A) 1 %; Eosinophils # (A) 0.2 k/uL (0-0.7); Eosinophils % (A) 3 %; HCT 45.1 % (39.0-53.0); HGB 15.2 gm/dL (13.0-17.5); Lymphocytes # (A) 1.1 k/uL (1.0-4.8); Lymphocytes % (A) 19 %; MCHC 33.7 g/dL (31.0-37.0); Mean Platelet Volume 8.4; Monocytes # (A) 0.4 k/uL (0-1.0); Monocytes % (A) 7 %; Neutrophils # (A) 3.8 k/uL (1.3-7.7); Neutrophils % (A) 68 %; Platelet Count 198 k/uL (150-450); RBC 4.75 m/uL (4.30-5.90); RDW 12.5 % (11.5-15.5); WBC 5.6 k/uL (3.8-10.6)
[2022-05-09 09:54] LABS: African American GFR (CKD) >90 (>60 ml/min/1.73 sqM); Anion Gap 9 mmol/L; Blood Urea Nitrogen 11 mg/dL (9-20); Calcium 8.8 mg/dL (8.4-10.2); Carbon Dioxide 26 mmol/L (22-30); Chloride 104 mmol/L (98-107); Glucose 132 mg/dL (74-99); Non-African American GFR(CKD) 87 (>60 ml/min/1.73 sqM); Potassium 4.2 mmol/L (3.5-5.1); Sodium 139 mmol/L (137-145)
--- NOTE | 2022-05-09 14:32 | P.PN ---
Subjective Progress Note Date: 05/09/22 Patient was initially seen by Dr. Ruby. Please refer to her note for details. Patient is a 72-year-old right-handed male, who states that he woke up yesterday morning with complete weakness of the right arm. He states that he took Tylenol PM at night prior, slept straight 7 hours and when he woke up, was laying on his right arm. His right arm was very weak. He denies any symptoms attributed to the face, leg or speech. He does not remember sleeping straight 7 hours for a very long time. He states the symptoms improved in a couple hours, but his right arm is still weak, with decreased dexterity. At present he says that when he is laying down, and he holds his right arm up, he feels his right deltoid gives away. Patient prior to arrival, was currently taking aspirin 81 mg tablet, 3 tablets twice a day for last 6 years since he had undergone stenting. He is compliant with medication. He says that he was recommended Plavix, but he develops "extreme reaction" to Plavix, like he is having a heart attack. He also states that he has bad reaction to statins, which "ruins his musculature, bones, like he is having a heart attack". He states that he does not like statins, does not need it, and would not take it. Patient says that yesterday he had a headache, but not today. Objective - Vital Signs Vital signs: Vital Signs Temp 98 F 05/09/22 12:00 Pulse 81 05/09/22 12:00 Resp 20 05/09/22 12:00 BP 119/79 05/09/22 12:00 Pulse Ox 93 L 05/09/22 12:00 FiO2 Intake & Output 05/08/22 05/09/22 05/09/22 18:59 06:59 18:59 Intake Total 776 118 Balance 776 118 Intake: Oral 776 118 Other: Voiding Method Toilet Toilet # Voids 2 2 2 # Bowel Movements 2 - Exam Patient is an elderly male, in no acute distress. Patient is alert awake oriented to time place and person. Speech and language functions are normal. Patient can name and repeat very well. No aphasia or dysarthria. Attention, concentration and fund of knowledge is adequate. On cranial nerve examination, pupils are equal, round and reacting to light, visual lares are full on confrontation, with no neglect on double simultaneous stimulation. Extraocular muscles are intact with no nystagmus. Face is symmetric, although they may be very slight right facial asymmetry, tongue protrudes to the midline. Palatal elevation and sensation normal, hearing and shoulder shrug normal, facial sensation normal. On muscle strength testing, there is no pronator drift and the strength is normal in arms and legs distally and proximally. Sensory to touch is equal with no neglect on double simultaneous stimulation. Cerebellar function showed very mild ataxia for [id number] testing on the on the right. No dysdiadochokinesia. No ataxia for [id number] testing on either side. Tone and bulk of muscles normal. Patient has slightly decreased finger tapping on the right as compared to left. Gait normal. On general examination, there is no carotid bruit or murmur, S1-S2 audible. Chest is clear on consultation. Abdomen is soft nontender. No organomegaly, bowel sounds present. Peripheral pulses are present. No edema. - Labs CBC & Chem 7: 05/09/22 09:04 05/09/22 09:04 Labs: Abnormal Lab Results - Last 24 Hours (Table) 05/09/22 Range/Units 09:04 Glucose 132 H (74-99) mg/dL Assessment and Plan Assessment: 1. New onset right upper extremity weakness following reported prolonged compression. Neurologic examination findings are more consistent with a central etiology for the patient's right upper extremity weakness. Right upper extremity reflexes are more brisk at there is associated tremor and ataxia. If the patient's weakness was slowly related to compression, there would be no reflex asymmetry or, the right upper extremity reflexes would be diminished 2. History of coronary artery disease 3. History of hypertension Plan: 1. Await MRI of brain, scheduled for 4:30 PM. 2. Check 2-D echocardiogram hemoglobin A1c pending, TSH 1.2, B12 475 3. Lipid panel with cholesterol to her and 13, LDL 146, HDL 42 and triglycerides 121. High-dose statin should be initiated. Patient currently on Lipitor 40 mg. He does not want to take statins. 4. The patient has reportedly been taking aspirin 81 mg, 3 tablets twice daily following his cardiac stent placement. The patient reports adverse reaction to Plavix. If MRI is positive for stroke consider starting Brilinta 5. CTA of head and neck revealed no significant abnormality. 6. Physical and occupational therapy consultations.
--- NOTE | 2022-05-09 16:41 | MR ---
EXAMINATION TYPE: MR brain wo con DATE OF EXAM: 05/09/2022 COMPARISON: CT brain 2 days ago HISTORY: Right arm weakness, evaluate for CVA. TECHNIQUE: Multiplanar, multisequence imaging of the brain and brainstem is performed without IV cont rast. FINDINGS: Diffusion weighted images demonstrate a few scattered small areas of increased signal on diffusion-we ighted imaging which diminished signal on ABC mapping involving subcortical portions of the posterior left frontal and left parietal lobes with corresponding areas of increased signal. Findings consiste nt with evolving multifocal acute lacunar infarcts. No right-sided restricted diffusion. There is mild to moderate ventricular and sulcal prominence. There are focal and confluent areas of T2 hyperintensity seen throughout the white matter bilaterally. Midline structures demonstrate normal morphology. The craniocervical junction appears within normal limits. Normal vascular flow voids are present. The visualized sinuses are clear and the globes are i ntact. IMPRESSION: 1. Confirmation of multifocal evolving acute lacunar infarcts through the subcortical left frontal an d parietal lobes. 2. Background mild to moderate diffuse cerebral atrophy and chronic small vessel ischemic changes are redemonstrated. A Yellow level critical message alert has been initiated for Polo Garcia MD via the [facility] Critical Results System on 05/09/2022 4:38 PM. This message alert has been sent to Polo Garcia MD via the preferences provided by the clinician for the receipt of Radiology Critical Findin gs. Message ID [id number].
[2022-05-09] MEDS: ATORVASTATIN 40 MG TAB PO SCH (19:58)
[2022-05-09] MEDS: FINASTERIDE 5 MG TAB PO SCH (19:59)
--- NOTE | 2022-05-10 01:27 | P.PN ---
Subjective Progress Note Date: 05/09/22 Patient is a 72-year-old male with a known history of COPD, hypertension, abdominal aortic aneurysm, chronic left shoulder pain and prior history of smoking presents to ER with complaints of right arm weakness and numbness. Patient noticed symptoms as says he woke up this morning around 6 AM and was not improving. After about a couple hours patient was able to move his thumb and hold hand but still having significant weakness and numbness and patient to come to ER. Denied any injury or fall. Patient apparently took Tylenol for along with Benadryl last night and slept 7 hours straight on his right arm. Patient usually wakes up in the middle of the night for urination. Patient also felt very weak in the triceps as well. Denied any complaints of leg weakness. No slurred speech or difficulty speaking. No complaints of prior seizures. No double vision or blurred vision. Next and no fever no chills. No nausea vomiting abdominal pain or diarrhea. No headache or dizziness or lighthea dedness. No dysuria or hematuria. . CT head in the ER showed age-related chronic changes and probable chronic small vessel ischemic changes. Consider brain MRI for a better visualization. Chest x-ray showed no acute cardiopulmonary process. Underlying emphysema. CT angiogram showed no underlying segment abnormality. Next an EKG showed sinus bradycardia Laboratory data showed WBC 6.4 hemoglobin 15.3 and platelets 216 Sodium 139 potassium 4.5 chloride 109 bicarb is 28 BUN 9 and creatinine 0.79 blood sugar is 112, troponin 1 negative 05/08/2022 Patient still having right upper extremity numbness and weakness. Patient states that he has been having tricuspid Muscle weakness. No complaints of leg weakness. No headache or dizziness lightheadedness. No neck pain. Neurology is is on board. MRI of the brain was ordered. Otherwise patient denied any chest pain or shortness of breath. No nausea vomiting or abdominal pain or diarrhea. 05/09/2022 Patient is seen and evaluated in follow-up this morning currently awaiting neurology evaluation along with MRI of the brain. Scheduled for today although unsure of what time. Patient denies chest pain or shortness of breath. Patient is afebrile. Patient reports his symptoms are improving and denies weakness. No reports of headache today. Patient labs reviewed and within normal limits. Encouraged increased activity as tolerated and will await MRI report. Review of systems: Constitutional: No reports of fatigue, fever, or chills Cardiovascular: No reports of chest pain or palpitations Respiratory: No reports of shortness of breath or cough GI: No reports of nausea, vomiting, or diarrhea : No reports of dysuria or retention Neurovascular: No reports of weakness or numbness All medications have been reviewed PHYSICAL EXAMINATION: Patient is lying in the bed asleep, but easily arousable, alert and oriented.. well developed, well nourished HEENT: Normocephalic. Neck is supple. Pupils reactive. Nostrils clear. Oral cavity is moist. Neck reveals no JVD, carotid bruits, or thyromegaly. CHEST EXAMINATION: Trachea is central. Symmetrical expansion. Lung lares diminished with no wheezing or rhonchi noted CARDIAC: S1, S2 muffled ABDOMEN: Soft. Bowel sounds normal. No organomegaly. No abdominal bruits. Extremities: reveal no edema. No clubbing or cyanosis Neurologically awake, alert, oriented x3 with well-coordinated movements. Right upper extremity weakness compared to left. Motor strength 5 out of 5. Skin: No rash or skin lesions. Psychiatric: Cooperative. Non-suicidal Musculoskeletal: No joint swelling or deformity. Normal range of motion. Assessment: Right arm weakness and numbness. Rule out acute CVA. CT head and CT angiogram is negative. Thought to be due to prolonged compression while sleeping on the right arm. Hypertension COPD Abdominal aortic aneurysm Coronary artery disease with history of stent placement Prior history of smoking DVT prophylaxis with heparin subcu Full code Plan: Patient will be continued on telemetry monitoring and continue with neuro checks every 4 hourly. on aspirin and statins. Reports he does not like taking statins due to side effects. Neurology following and undergoing neurological workup. CTA was negative and scheduled to undergo brain MRI today this afternoon. Will await report. Follow-up B12 folate and A1c levels. TSH and lipid panel as well. Labs reviewed and within normal limits. Await neurological clearance and will consult cardiology as well. Due to multiple complex medical issues, prognosis is guarded. Continue to monitor closely. The impression and plan of care has been dictated by Nurse Grace Orozco as directed. Dr. Bronson MD I have performed a history and examination and MDM of this patient, discussed the same with the dictator, and agree with the dictator's assessment and plan as written ,documented as a scribe. Based on total visit time, I have performed more than 50% of the visit. Objective - Vital Signs Vital signs: Vital Signs Temp 98 F 05/09/22 12:00 Pulse 81 05/09/22 12:00 Resp 20 05/09/22 12:00 BP 119/79 05/09/22 12:00 Pulse Ox 93 L 05/09/22 12:00 FiO2 Intake & Output 05/08/22 05/09/22 05/09/22 18:59 06:59 18:59 Intake Total 776 340 Balance 776 340 Intake: Oral 776 340 Other: Voiding Method Toilet Toilet # Voids 2 2 2 # Bowel Movements 2 - Labs CBC & Chem 7: 05/09/22 09:04 05/09/22 09:04 Labs: Abnormal Lab Results - Last 24 Hours (Table) 05/09/22 Range/Units 09:04 Glucose 132 H (74-99) mg/dL
[2022-05-10] MEDS: HEPARIN SODIUM,PORCINE/PF 5,000 UNIT/0.5 ML SYRINGE SQ SCH ×2 (08:44→17:13)
[2022-05-10] MEDS ORDERED: fentaNYL (PF) 50 MCG/ML 2 ML AMP ONE (08:58)
[2022-05-10] MEDS ORDERED: IV FLUID CONTINUATION 950 ML IV ONE (09:10)
[2022-05-10] MEDS ORDERED: MIDAZOLAM 2 MG/2 ML VIAL IV ONE (09:33)
[2022-05-10] MEDS ORDERED: BENZOCAINE SPRAY 1 CAN TOPICAL ONE (09:33)
[2022-05-10] MEDS ORDERED: fentaNYL (PF) 50 MCG/ML 2 ML AMP IV ONE (09:35)
--- NOTE | 2022-05-10 09:37 | P.CRDCN ---
History of Present Illness Consult date: 05/10/22 History of present illness: HISTORY OF PRESENT ILLNESS: This is a 72-year-old male with a past medical history significant for coronary artery disease with previous stenting to the RCA in 2017, abdominal aortic aneurysm, and hyperlipidemia with an intolerance to statins (about 10 years ago). Patient follows in the office with Dr. Feliciano. We have been asked to see the patient in consultation for JIMENEZ. Patient examined at the bedside. Patient presented to the hospital with chief complaint of inability to move his right upper extremity. The patient underwent an MRI revealing acute lacunar infarcts of the left frontal and parietal lobes. Patient is currently on aspirin 81 mg daily. He has an ALLERGY to Plavix. He denies any chest pain or pressure. Denies any shortness of breath. Denies any previous history of atrial fibrillation. Telemetry reveals sinus mechanism. * EKG reveals sinus mechanism with no signs of acute ischemia * Chest xray negative for acute process * Laboratory data: WBC 5.6. Hemoglobin 15.2. Platelet count 198. Sodium 139. Potassium 4.2. BUN 11. Creatinine 0.83. Troponin negative x 1 * Current home cardiac medications include aspirin 243mg BID REVIEW OF SYSTEMS: At the time of my exam: CONSTITUTIONAL: Denies fever or chills. HEENT: Denies blurred vision, vision changes, or eye pain. Denies hemoptysis CARDIOVASCULAR: Denies chest pain. Denies orthopnea. Denies PND. Denies palpitations RESPIRATORY: Denies shortness of breath. GASTROINTESTINAL: Denies abdominal pain. Denies nausea or vomiting. HEMATOLOGIC: Denies bleeding disorders. GENITOURINARY: Denies any blood in urine. SKIN: Denies pruitis. Denies rash. PHYSICAL EXAM: VITAL SIGNS: Reviewed. GENERAL: Well-developed in no acute distress. HEENT: Head is normocephalic. Pupils are equal, round. Sclerae anicteric. Mucous membranes of the mouth are moist. Neck supple. No JVD or thyromegaly LUNGS: Respirations even and unlabored. Lungs essentially clear to auscultation bilaterally. HEART: Regular rate and rhythm. S1 and S2 heard. ABDOMEN: Soft. Nondistended. Nontender. EXTREMITIES: Normal range of motion. No clubbing or cyanosis. Peripheral pulses intact. No lower extremity edema NEUROLOGIC: Awake and alert. Oriented x 3. ASSESSMENT: Acute CVA Coronary artery disease with previous stenting of RCA Hyperlipidemia, previous intolerance to statin therapy Abdominal aortic aneurysm History of frequent PVCs with ablation Former nicotine dependence PLAN: Obtain 2D echo to assess cardiac structure and function Continue aspirin Begin Brilinta. Patient has allergy to Plavix. Patient agreeable to taking Lipitor. However, requesting lower dose. Will continue 40mg at HS. Patient to undergo JIMENEZ today with Dr. Villela Continue telemetry monitoring to assess for any arrhythmias Event monitor at discharge Further recommendations pending patient course Nurse practitioner note has been reviewed by physician. Signing provider agrees with the documented findings, assessment, and plan of care. Past Medical History Past Medical History: COPD, Hypertension Additional Past Medical History / Comment(s): chest pain, abd aortic aneurysm History of Any Multi-Drug Resistant Organisms: None Reported Past Surgical History: Ablation, Heart Catheterization With Stent Additional Past Surgical History / Comment(s): left shoulder, hydrocele, prostate biopsy with cancer - no active tx. Past Anesthesia/Blood Transfusion Reactions: No Reported Reaction Date of Last Stent Placement:: unknown Past Psychological History: No Psychological Hx Reported Additional Psychological History / Comment(s): "anger toward certain people sometimes" Smoking Status: Former smoker Past Alcohol Use History: None Reported Past Drug Use History: None Reported - Past Family History Brother(s) Family Medical History: Cancer Additional Family Medical History / Comment(s): PROSTATE Sister(s) Family Medical History: Myocardial Infarction ([place]) Mother Family Medical History: Myocardial Infarction ([place]) Father Family Medical History: CVA/TIA Medications and Allergies Home Medications Medication Instructions Recorded Confirmed Type Aspirin 243 mg PO BID 02/09/17 05/07/22 History Finasteride [Proscar] 5 mg PO HS 05/07/22 05/07/22 History Multivitamins, Thera [Multivitamin 1 tab PO DAILY 05/07/22 05/07/22 History (formulary)] Tamsulosin [Flomax] 0.4 mg PO DAILY 05/07/22 05/07/22 History Ubidecarenone [Q-Sorb Co Q-10] 200 mg PO DAILY 05/07/22 05/07/22 History Allergies Allergy/AdvReac Type Severity Reaction Status Date / Time clopidogrel [From Plavix] Allergy Severe Anaphylaxis Verified 05/07/22 12:41 Physical Exam Vitals: Vital Signs Temp Pulse Resp BP Pulse Ox 05/10/22 04:25 98.2 F 16 128/71 95 05/09/22 23:35 97.4 F L 63 15 112/68 96 05/09/22 20:00 97.6 F 74 18 144/86 93 L 05/09/22 16:49 97.5 F L 72 20 129/73 96 05/09/22 12:00 98 F 81 20 119/79 93 L Intake and Output 05/09/22 05/10/22 05/10/22 22:59 06:59 14:59 Intake Total 462 0 Balance 462 0 Intake: Oral 462 0 Other: # Voids 2 2 Results 05/09/22 09:04 05/09/22 09:04 Comprehensive Metabolic Panel 05/09/22 Range/Units 09:04 Sodium 139 (137-145) mmol/L Potassium 4.2 (3.5-5.1) mmol/L Chloride 104 (98-107) mmol/L Carbon Dioxide 26 (22-30) mmol/L BUN 11 (9-20) mg/dL Creatinine 0.83 (0.66-1.25) mg/dL Glucose 132 H (74-99) mg/dL Calcium 8.8 (8.4-10.2) mg/dL Current Medications Generic Name Dose Route Start Last Admin Trade Name Freq PRN Reason Stop Dose Admin Acetaminophen 650 mg 05/08/22 13:06 05/08/22 20:34 Acetaminophen Tab 325 Mg Tab PO 650 mg Q6HR PRN Administration Fever and/ or Pain Aspirin 81 mg 05/08/22 09:00 05/09/22 08:32 Aspirin 81 Mg PO 81 mg DAILY NADER Administration Atorvastatin Calcium 40 mg 05/10/22 21:00 Atorvastatin 40 Mg Tab PO HS NADER Finasteride 5 mg 05/07/22 21:00 05/09/22 19:59 Finasteride 5 Mg Tab PO 5 mg HS NADER Administration Heparin Sodium (Porcine) 5,000 unit 05/08/22 00:00 05/10/22 08:44 Heparin Sodium,Porcine/Pf 5,000 Unit/0.5 Ml Syringe SQ Not Given Q8HR NADER Naloxone HCl 0.2 mg 05/07/22 12:58 Naloxone 0.4 Mg/Ml 1 Ml Vial IV Q2M PRN Opioid Reversal Tamsulosin HCl 0.4 mg 05/08/22 09:00 05/09/22 08:32 Tamsulosin 0.4 Mg Cap.Er.24h PO 0.4 mg DAILY NADER Administration Ticagrelor 90 mg 05/10/22 09:00 Ticagrelor 90 Mg Tab PO BID NADER Intake and Output 05/09/22 05/10/22 05/10/22 22:59 06:59 14:59 Intake Total 462 0 Balance 462 0 Intake: Oral 462 0 Other: # Voids 2 2 05/09/22 09:04 05/09/22 09:04
[2022-05-10] MEDS: TICAGRELOR 90 MG TAB PO SCH ×2 (12:27→21:20)
[2022-05-10] MEDS: ASPIRIN 81 MG PO SCH (12:27)
[2022-05-10] MEDS: TAMSULOSIN 0.4 MG CAP.ER.24H PO SCH (12:27)
--- NOTE | 2022-05-10 13:04 | CA ---
Transthoracic Echo Report Name: Robert Fernandez Age: 72 Gender: M : 1950 Exam Date: 05/10/2022 09:46 Exam Location: [facility] Ht (in): 72 Wt (lb): 205 Ordering Physician: Saji Holder MD Attending/Referring Phys: Nursing Care Partner Josee Hilliard RDCS Procedure CPT: Indications: stroke Cardiac Hx: Technical Quality: Fair Contrast 1: Total Dose (mL): Contrast 2: Total Dose (mL): MEASUREMENTS (Male / Female) Normal Values 2D ECHO LV Diastolic Diameter PLAX 4.5 cm 4.2 - 5.9 / 3.9 - 5.3 cm LV Systolic Diameter PLAX 2.7 cm IVS Diastolic Thickness 1.2 cm 0.6 - 1.0 / 0.6 - 0.9 cm LVPW Diastolic Thickness 1.0 cm 0.6 - 1.0 / 0.6 - 0.9 cm LV Relative Wall Thickness 0.5 RV Internal Dim ED PLAX 3.4 cm LA Systolic Diameter LX 3.3 cm 3.0 - 4.0 / 2.7 - 3.8 cm M-MODE Aortic Root Diameter MM 3.9 cm MV E Point Septal Separation 0.8 cm AV Cusp Separation MM 1.7 cm DOPPLER AV Peak Velocity 167.5 cm/s AV Peak Gradient 11.2 mmHg MV Area PHT 4.0 cm??? Mitral E Point Velocity 74.1 cm/s Mitral A Point Velocity 62.5 cm/s Mitral E to A Ratio 1.2 MV Deceleration Time 190.1 ms MV E' Velocity 10.0 cm/s Mitral E to MV E' Ratio 7.4 TR Peak Velocity 300.4 cm/s TR Peak Gradient 36.1 mmHg Right Ventricular Systolic Press 40.8 mmHg FINDINGS Left Ventricle Left ventricular ejection fraction is estimated at 60-65 %. Left ventricular cavity size normal. Left ventricular wall thickness normal. Right Ventricle Mild right ventricular dilatation. Mild pulmonary hypertension. Right Atrium Normal right atrial size. Negative agitated saline bubble study from prior JIMENEZ prior ECHO Left Atrium Normal left atrial size. Mitral Valve Mitral valve thickened. Mitral annular calcification. Mild mitral regurgitation. Aortic Valve Trileaflet aortic valve. No aortic valve stenosis or regurgitation. Tricuspid Valve Structurally normal tricuspid valve. Pulmonic Valve Structurally normal pulmonic valve. Pericardium Normal pericardium. No pericardial effusion. Aorta Mild aortic dilatation at the level of the sinuses of valsalva 39 mm CONCLUSIONS Left ventricular ejection fraction 60-65% RVSP 40.8 Mild mitral regurgitation No pericardial effusion Aortic root measurement 3.9 cm Previewed by: Dr. Rupesh Vega DO (Electronically Signed) Final Date: 10 May 2022 13:03
[2022-05-10] MEDS ORDERED: ATORVASTATIN 80 MG TAB PO SCH (21:00)
[2022-05-10] MEDS ORDERED: ATORVASTATIN 40 MG TAB PO SCH (21:00)
[2022-05-10] MEDS ORDERED: ATORVASTATIN 10 MG TAB PO SCH (21:00)
[2022-05-10] MEDS: FINASTERIDE 5 MG TAB PO SCH (21:20)
[2022-05-11] MEDS: HEPARIN SODIUM,PORCINE/PF 5,000 UNIT/0.5 ML SYRINGE SQ SCH ×2 (00:09→09:46)
--- NOTE | 2022-05-11 05:44 | P.PN ---
Subjective Progress Note Date: 05/10/22 Patient is a 72-year-old male with a known history of COPD, hypertension, abdominal aortic aneurysm, chronic left shoulder pain and prior history of smoking presents to ER with complaints of right arm weakness and numbness. Patient noticed symptoms as says he woke up this morning around 6 AM and was not improving. After about a couple hours patient was able to move his thumb and hold hand but still having significant weakness and numbness and patient to come to ER. Denied any injury or fall. Patient apparently took Tylenol for along with Benadryl last night and slept 7 hours straight on his right arm. Patient usually wakes up in the middle of the night for urination. Patient also felt very weak in the triceps as well. Denied any complaints of leg weakness. No slurred speech or difficulty speaking. No complaints of prior seizures. No double vision or blurred vision. Next and no fever no chills. No nausea vomiting abdominal pain or diarrhea. No headache or dizziness or lighthea dedness. No dysuria or hematuria. . CT head in the ER showed age-related chronic changes and probable chronic small vessel ischemic changes. Consider brain MRI for a better visualization. Chest x-ray showed no acute cardiopulmonary process. Underlying emphysema. CT angiogram showed no underlying segment abnormality. Next an EKG showed sinus bradycardia Laboratory data showed WBC 6.4 hemoglobin 15.3 and platelets 216 Sodium 139 potassium 4.5 chloride 109 bicarb is 28 BUN 9 and creatinine 0.79 blood sugar is 112, troponin 1 negative 05/08/2022 Patient still having right upper extremity numbness and weakness. Patient states that he has been having tricuspid Muscle weakness. No complaints of leg weakness. No headache or dizziness lightheadedness. No neck pain. Neurology is is on board. MRI of the brain was ordered. Otherwise patient denied any chest pain or shortness of breath. No nausea vomiting or abdominal pain or diarrhea. 05/09/2022 Patient is seen and evaluated in follow-up this morning currently awaiting neurology evaluation along with MRI of the brain. Scheduled for today although unsure of what time. Patient denies chest pain or shortness of breath. Patient is afebrile. Patient reports his symptoms are improving and denies weakness. No reports of headache today. Patient labs reviewed and within normal limits. Encouraged increased activity as tolerated and will await MRI report. 05/10/2022 Patient is seen today and undergoing neurological workup for CVA and MRI is suggestive of multiple infarcts of the parietal left frontal regions. Cardiology consulted as well for 2d echo bubble study with JIMENEZ. Patient being started on brilinta as there is an allergy to plavix and statins. Patient currently denies any weakness or deficits. PT/OT therapy to evaluate. Need to discuss further with neurology about treatment plan. Patient is afebrile and denies chest pain or shortness of breath. Tolerating diet with no reports of nausea or vomiting. Review of systems: Constitutional: No reports of fatigue, fever, or chills Cardiovascular: No reports of chest pain or palpitations Respiratory: No reports of shortness of breath or cough GI: No reports of nausea, vomiting, or diarrhea : No reports of dysuria or retention Neurovascular: No reports of weakness or numbness All medications have been reviewed PHYSICAL EXAMINATION: Patient is lying in the bed, alert and oriented.. well developed, well nourished HEENT: Normocephalic. Neck is supple. Pupils reactive. Nostrils clear. Oral cavity is moist. Neck reveals no JVD, carotid bruits, or thyromegaly. CHEST EXAMINATION: Trachea is central. Symmetrical expansion. Lung lares diminished with no wheezing or rhonchi noted CARDIAC: S1, S2 muffled ABDOMEN: Soft. Bowel sounds normal. No organomegaly. No abdominal bruits. Extremities: reveal no edema. No clubbing or cyanosis Neurologically awake, alert, oriented x3 with well-coordinated movements. Right upper extremity weakness compared to left. Motor strength 5 out of 5. Skin: No rash or skin lesions. Psychiatric: Cooperative. Non-suicidal Musculoskeletal: No joint swelling or deformity. Normal range of motion. Assessment: Right arm weakness and numbness secondary to acute CVA as noted on MRI Hypertension COPD Abdominal aortic aneurysm Coronary artery disease with history of stent placement Prior history of smoking DVT prophylaxis with heparin subcu Full code Plan: Patient will be continued on telemetry monitoring and continue with neuro checks every 4 hourly. on aspirin and statins. Reports he does not like taking statins due to side effects. Neurology following and undergoing neurological workup. MRI was suggestive of multiple infarcts. Being initiated on brilinta. JIMENEZ bubble study was negative per cardiology. Await neurological clearance and will need close outpatient follow up with neurology. Due to multiple complex medical issues, prognosis is guarded. Continue to monitor closely. Possible discharge in 24 hours. The impression and plan of care has been dictated by Chichi Jones, Nurse Practitioner as directed. Dr. Bronson MD I have performed a history and examination and MDM of this patient, discussed the same with the dictator, and agree with the dictator's assessment and plan as written ,documented as a scribe. Based on total visit time, I have performed more than 50% of the visit. Objective - Vital Signs Vital signs: Vital Signs Temp 97.2 F L 05/10/22 11:40 Pulse 56 L 05/10/22 11:40 Resp 15 05/10/22 11:40 BP 110/63 05/10/22 11:40 Pulse Ox 94 L 05/10/22 11:40 FiO2 Intake & Output 05/09/22 05/10/22 05/10/22 18:59 06:59 18:59 Intake Total 562 240 50 Balance 562 240 50 Intake: IV 50 Oral 562 240 0 Other: Voiding Method Toilet # Voids 2 2 - Labs CBC & Chem 7: 05/09/22 09:04 05/09/22 09:04
--- NOTE | 2022-05-11 07:59 | ECHOT ---
TRANSESOPHAGEAL ECHOCARDIOGRAM INDICATIONS: CVA, rule out cardiac source of thromboembolic phenomenon. PROCEDURE NOTE: After obtaining informed consent, transesophageal echocardiogram is done in left lateral position using an Omniplane probe. Local and IV sedation were obtained using 1 mg of Versed and 50 mcg of fentanyl. The patient tolerated the procedure well without any obvious immediate complications. Total sedation time was 9 minutes. FINDINGS: 1. There is no intracardiac thrombus within the left atrial appendage, left atrium, right atrium, and right ventricle. 2. Interatrial septum, there is no evidence of twrt-gy-rgnwk shunt by color-flow Doppler or cvvnb-gb-tptj shunt by agitated saline contrast study. 3. Mitral valve shows mild mitral regurgitation. 4. Left atrium, right atrium, right ventricle, seen within normal limits. 5. Left ventricle has normal size and systolic function. 6. Aortic valve is a 3-leaflet valve. There is no evidence of aortic stenosis or regurgitation. 7. Tricuspid valve shows mild tricuspid regurgitation. 8. Aortic root measures within normal limits. CONCLUSIONS: This transesophageal echo does not reveal any cardiac source of thromboembolic CVA. There is no shunting across the interatrial septum. No intracardiac thrombus. LV function is normal. MMODL / IJN: [id number] /
[2022-05-11] MEDS: TICAGRELOR 90 MG TAB PO SCH (09:46)
[2022-05-11] MEDS: TAMSULOSIN 0.4 MG CAP.ER.24H PO SCH (09:46)
[2022-05-11] MEDS: ASPIRIN 81 MG PO SCH (09:46)
--- NOTE | 2022-05-11 09:55 | P.PN ---
Subjective Progress Note Date: 05/11/22 HISTORY OF PRESENT ILLNESS: This is a 72-year-old male with a past medical history significant for coronary artery disease with previous stenting to the RCA in 2017, abdominal aortic aneurysm, and hyperlipidemia with an intolerance to statins (about 10 years ago). Patient follows in the office with Dr. Feliciano. We have been asked to see the patient in consultation for JIMENEZ. Patient examined at the bedside. Patient presented to the hospital with chief complaint of inability to move his right upper extremity. The patient underwent an MRI revealing acute lacunar infarcts of the left frontal and parietal lobes. Patient is currently on aspirin 81 mg daily. He has an ALLERGY to Plavix. He denies any chest pain or pressure. Denies any shortness of breath. Denies any previous history of atrial fibrillation. Telemetry reveals sinus mechanism. * EKG reveals sinus mechanism with no signs of acute ischemia * Chest xray negative for acute process * Laboratory data: WBC 5.6. Hemoglobin 15.2. Platelet count 198. Sodium 139. Potassium 4.2. BUN 11. Creatinine 0.83. Troponin negative x 1 * Current home cardiac medications include aspirin 243mg BID 05/11/2022 Patient is s/p JIMENEZ which did not reveal any cardiac source of thromboembolic CVA. There was no shunting across the intra-atrial septum and no intracardiac thrombus. Echocardiogram completed revealed ejection fraction 60-65%. Telemetry reveals sinus mechanism. The patient denies any chest pain or pressure. He denies any shortness of breath. Vital signs are stable. He is hoping to be discharged home today. PHYSICAL EXAM: VITAL SIGNS: Reviewed. GENERAL: Well-developed in no acute distress. HEENT: Head is normocephalic. Pupils are equal, round. Sclerae anicteric. Mucous membranes of the mouth are moist. Neck supple. No JVD or thyromegaly LUNGS: Respirations even and unlabored. Lungs essentially clear to auscultation bilaterally. HEART: Regular rate and rhythm. S1 and S2 heard. ABDOMEN: Soft. Nondistended. Nontender. EXTREMITIES: Normal range of motion. No clubbing or cyanosis. Peripheral pulses intact. No lower extremity edema NEUROLOGIC: Awake and alert. Oriented x 3. ASSESSMENT: Acute CVA Coronary artery disease with previous stenting of RCA Hyperlipidemia, previous intolerance to statin therapy Abdominal aortic aneurysm History of frequent PVCs with ablation Former nicotine dependence PLAN: Continue aspirin and Brilinta. Patient has allergy to Plavix. Patient agreeable to taking Lipitor. However, requesting lower dose. Will continue 40mg at HS. Patient has had an event monitor placed to assess for arrhythmias on an outpatient basis Patient is stable for discharge home today from a cardiac standpoint with outpatient follow-up with Dr. Feliciano Nurse practitioner note has been reviewed by physician. Signing provider agrees with the documented findings, assessment, and plan of care. Objective - Vital Signs Vital signs: Vital Signs Temp 97.6 F 05/11/22 09:43 Pulse 75 05/11/22 09:43 Resp 18 05/11/22 09:43 BP 134/69 05/11/22 09:43 Pulse Ox 94 L 05/11/22 09:43 FiO2 Intake & Output 05/10/22 05/11/22 05/11/22 18:59 06:59 18:59 Intake Total 50 0 128 Balance 50 0 128 Intake: IV 50 10 Invasive Line 1 10 Intake, IV Titration 0 Amount IV Fluid Continuation 950 0 ml @ 0 mls/hr IV .STK- [facility] Rx#:[id number] Oral 0 118 Other: Voiding Method Toilet # Voids 0 2 # Bowel Movements 0 - Labs CBC & Chem 7: 05/09/22 09:04 05/09/22 09:04
--- NOTE | 2022-05-11 10:40 | P.PN ---
Subjective Progress Note Date: 05/10/22 05/10/2022: Patient was seen for a follow-up. Patient denies any new complaints. He appears somewhat anxious. Very concerned about the medications he is taking. No new symptoms. Telemetry monitoring showing sinus rhythm, with sinus bradycardia in 50s and some bundle branch block. 05/09/2022: Patient was initially seen by Dr. Ruby. Please refer to her note for details. Patient is a 72-year-old right-handed male, who states that he woke up yesterday morning with complete weakness of the right arm. He states that he took Tylenol PM at night prior, slept straight 7 hours and when he woke up, was laying on his right arm. His right arm was very weak. He denies any symptoms attributed to the face, leg or speech. He does not remember sleeping straight 7 hours for a very long time. He states the symptoms improved in a couple hours, but his right arm is still weak, with decreased dexterity. At present he says that when he is laying down, and he holds his right arm up, he feels his right deltoid gives away. Patient prior to arrival, was currently taking aspirin 81 mg tablet, 3 tablets twice a day for last 6 years since he had undergone stenting. He is compliant with medication. He says that he was recommended Plavix, but he develops "extreme reaction" to Plavix, like he is having a heart attack. He also states that he has bad reaction to statins, which "ruins his musculature, bones, like he is having a heart attack". He states that he does not like statins, does not need it, and would not take it. Patient says that yesterday he had a headache, but not today. Objective - Vital Signs Vital signs: Vital Signs Temp 97.2 F L 05/10/22 11:40 Pulse 56 L 05/10/22 11:40 Resp 15 05/10/22 11:40 BP 110/63 05/10/22 11:40 Pulse Ox 94 L 05/10/22 11:40 FiO2 Intake & Output 05/09/22 05/10/22 05/10/22 18:59 06:59 18:59 Intake Total 562 240 50 Balance 562 240 50 Intake: IV 50 Oral 562 240 0 Other: Voiding Method Toilet # Voids 2 2 0 # Bowel Movements 0 - Exam Patient is an elderly male, in no acute distress. Patient is alert awake oriented to time place and person. Speech and language functions are normal. Patient can name and repeat very well. No aphasia or dy sarthria. Attention, concentration and fund of knowledge is adequate. On cranial nerve examination, pupils are equal, round and reacting to light, visual lares are full on confrontation, with no neglect on double simultaneous stimulation. Extraocular muscles are intact with no nystagmus. Patient has right facial droop. His tongue protrudes to the midline. Palatal elevation and sensation normal, hearing and shoulder shrug normal, facial sensation normal. On muscle strength testing, there is no pronator drift and the strength is normal in arms and legs distally and proximally. Sensory to touch is equal with no neglect on double simultaneous stimulation. Cerebellar function showed mild ataxia for tagvvi-xw-tbos testing on the on the right. No ataxia for iokn-tr-stzi testing on either side. Tone and bulk of muscles normal. Patient has slightly decreased finger tapping on the right as compared to left. Gait normal. On general examination, there is no carotid bruit or murmur, S1-S2 audible. Chest is clear on consultation. Abdomen is soft nontender. No organomegaly, bowel sounds present. Peripheral pulses are present. No edema. - Labs CBC & Chem 7: 05/09/22 09:04 05/09/22 09:04 Assessment and Plan Assessment: 1. Acute ischemic stroke, multiple involving 2. History of coronary artery disease 3. History of hypertension Plan: 1. MRI of brain revealed confirmation of multifocal evolving acute lacunar infarcts to the subcortical left frontal and parietal lobes. These appear embolic in nature. Background mild to moderate diffuse cerebral atrophy and chronic small vessel ischemic changes. I personally reviewed MRI agree with the findings. 2. 2-D echo revealed normal left ventricular systolic function with EF 60-65%. Mild MR. 3. Transesophageal echocardiogram today. There is no evidence of cardiac source of thromboembolism. There is no shunting across the interatrial septum. No intracardiac thrombus. Left ventricular function normal. 4. Hemoglobin A1c normal 5.8, TSH 1.2, B12 475 5. Lipid panel with cholesterol 213, LDL 146, HDL 42 and triglycerides 121. Patient very reluctant to take statins. He is already noticing some side effects, and appears very anxious. We will decrease dose of Lipitor to 10 mg daily. 6. Start Brilinta 90 mg twice a day and aspirin 81 mg daily. 7. CTA of head and neck revealed no significant abnormality. 8. Physical and occupational therapy consultations. 9. Neurologically clear for discharge. Recommend follow-up with neurologist in 2-4 weeks.
[2022-05-11 11:42] VITALS: BP 113/73; RESP 16; TEMP 97.8
[2022-05-11 11:44] VITALS: PULSE 80
--- NOTE | 2022-05-14 08:55 | P.DS ---
Providers Date of admission: 05/07/22 13:21 Expected date of discharge: 05/11/22 Attending physician: Polo Garcia Consults: 05/07/22 12:58 Consult Physician Routine Consulting Provider: Marie Ruby Consult Reason/Comments: CVA Do you want consulting provider notified?: Yes 05/09/22 16:43 Consult Physician Urgent Consulting Provider: Jony Villela Consult Reason/Comments: multiple infarcts on mri, possible JIMENEZ Do you want consulting provider notified?: Yes Primary care physician: Stated None Hospital Course: Final diagnosis Right arm weakness and numbness secondary to acute CVA as noted on MRI Hypertension COPD Abdominal aortic aneurysm Coronary artery disease with history of stent placement Prior history of smoking DVT prophylaxis with heparin subcu Full code Discharge disposition Patient is being discharged in a stable condition with guarded prognosis to home. Patient will follow-up with Dr. Rodriguez in the outpatient setting upon discharge. Patient is to follow up with neurology this week as scheduled. Patient to continue with aspirin and brilinta and statin. Recommend cardiology follow up as well. Total time taken is greater than 35 minutes. Hospital course This is a 72-year-old male who was recently admitted with acute stroke like symptoms and underwent neurological work up with cardiology as well and underwent MRI as well as bubble study echo/JIMENEZ and was noted to have evolving strokes recommending aspirin and brilinta along with statin therapy and close outpatient follow up with neurology this week and also cardiology. Patient is extremely anxious to leave and has been cleared by cardiology and neurology. Currently no reports of chest pain, shortness of breath, or palpitations. Patient is afebrile. No reports of nausea or vomiting and patient is tolerating diet. Patient will be discharged home. Guarded prognosis. Physical exam: Gen: This is a 72 year old male who is awake and alert and oriented x3. well dev eloped and well nourished. HEENT: Head is atraumatic, normocephalic. Pupils equal, round. Sclerae is anicteric. NECK: Supple. No JVD. No lymphadenopathy. No thyromegaly. LUNGS: diminished breath sounds with no wheezes or rhonchi. No intercostal retractions. HEART: S1, S2 muffled. ABDOMEN: Soft. Bowel sounds are present. No masses. No tenderness. EXTREMITIES: No pedal edema. No calf tenderness. NEUROLOGICAL: Patient is awake, alert and oriented x3. Cranial nerves 2 through 12 are grossly intact. Please refer to medication reconciliation sheet for a list of medications. The impression and plan of care has been dictated by Chichi Jones, Nurse Practitioner as directed. Dr. Cristofer MD I have performed a history and examination and MDM of this patient, discussed the same with the dictator, and agree with the dictator's assessment and plan as written ,documented as a scribe. Based on total visit time, I have performed more than 50% of the visit. Patient Condition at Discharge: Fair Plan - Discharge Summary Discharge Rx Participant: No New Discharge Prescriptions: New Aspirin 81 mg PO DAILY 30 Days #30 tab Ticagrelor [Brilinta] 90 mg PO BID 30 Days #60 tab Acetaminophen Tab [Tylenol] 650 mg PO Q6HR PRN tab PRN Reason: Fever And/ Or Pain Atorvastatin [Lipitor] 10 mg PO HS 30 Days #30 tab Continue Multivitamins, Thera [Multivitamin (formulary)] 1 tab PO DAILY Finasteride [Proscar] 5 mg PO HS Tamsulosin [Flomax] 0.4 mg PO DAILY Ubidecarenone [Q-Sorb Co Q-10] 200 mg PO DAILY Discontinued Aspirin 243 mg PO BID Discharge Medication List Finasteride [Proscar] 5 mg PO HS 05/07/22 [History] Multivitamins, Thera [Multivitamin (formulary)] 1 tab PO DAILY 05/07/22 [History] Tamsulosin [Flomax] 0.4 mg PO DAILY 05/07/22 [History] Ubidecarenone [Q-Sorb Co Q-10] 200 mg PO DAILY 05/07/22 [History] Acetaminophen Tab [Tylenol] 650 mg PO Q6HR PRN tab 05/11/22 [Rx] Aspirin 81 mg PO DAILY 30 Days #30 tab 05/11/22 [Rx] Atorvastatin [Lipitor] 10 mg PO HS 30 Days #30 tab 05/11/22 [Rx] Ticagrelor [Brilinta] 90 mg PO BID 30 Days #60 tab 05/11/22 [Rx] Follow up Appointment(s)/Referral(s): Nickolas Feliciano MD [STAFF PHYSICIAN] - 1 Week Sierra Rodriguez MD [STAFF PHYSICIAN] - 1 Week Jesus Haddad MD [Medical Doctor] - 2 Weeks (2-4 weeks) Patient Instructions/Handouts: Ischemic Stroke (DC) Activity/Diet/Wound Care/Special Instructions: Activity Limited until follow-up Follow-up with primary care provider on discharge Follow-up with cardiology outpatient as discussed Follow-up with neurology in 1-2 weeks Continue taking medications as prescribed Continue heart healthy diet Discharge Disposition: HOME SELF-CARE
== END 2022-05-11 13:58 | disposition home or self-care (01) | DRG 66 ==
LOC: EC 09:55 → 3SCARD 13:21
PROVIDERS: ADMIT Internal Medicine; ATTEND Internal Medicine
PROC: B246ZZ4 Ultrasonography of Right and Left Heart, Transesophageal (ICD-10-PCS; principal; 2022-05-07)
DX: I63.81 Other cerebral infarction due to occlusion or stenosis of small artery (principal); R00.1 Bradycardia, unspecified; I10 Essential (primary) hypertension; I25.10 Atherosclerotic heart disease of native coronary artery without angina pectoris; J43.9 Emphysema, unspecified; G31.89 Other specified degenerative diseases of nervous system; R27.0 Ataxia, unspecified; I08.1 Rheumatic disorders of both mitral and tricuspid valves; G83.9 Paralytic syndrome, unspecified; Z87.891 Personal history of nicotine dependence; I71.40 Abdominal aortic aneurysm, without rupture, unspecified; R53.1 Weakness; E78.5 Hyperlipidemia, unspecified; I45.4 Nonspecific intraventricular block; R29.702 NIHSS score 2; Z79.82 Long term (current) use of aspirin; Z79.899 Other long term (current) drug therapy; Z88.8 Allergy status to other drugs, medicaments and biological substances; Z95.5 Presence of coronary angioplasty implant and graft; Z82.3 Family history of stroke
CPT/HCPCS: 36415; 70450; 70496; 70498; 70551; 71046; 80048; 80053; 80061; 82607; 82747; 83036; 84443; 84484; 85025; 85610; 85730; 93005; 93270; 93306; 93312; 93320; 93325; 99285

== ENCOUNTER 2022-10-25 16:51 | Emergency (ER) | payer MEDICARE, OTHER ==
[2022-10-25 17:20] VITALS: TEMP 97.5
--- NOTE | 2022-10-25 17:57 | ED ---
General Adult HPI - General Source: patient, RN notes reviewed Mode of arrival: ambulatory Limitations: no limitations <Padmini Gonzales - Last Filed: 10/25/22 17:51> <Bushra Carranza - Last Filed: 10/26/22 17:01> - General Chief complaint: Shortness of Breath Stated complaint: SOB Time Seen by Provider: 10/25/22 17:51 - History of Present Illness Initial comments: Patient is 72-year-old male who presents to the emergency department for shortness of breath. Patient states he took Berlinta for the first time today, 180 mg. 30 minutes after he started to feel short of breath. Patient states he has COPD and read that Berlinta may make it worse. He does not have any chest pain. He denies fever, chills, cold-like symptoms, abdominal pain, nausea, vomiting. No leg pain or swelling. No history of heart attack. Patient does not use supplemental oxygen at home. (Padmini Gonzales) Patient is a 72-year-old male presenting with chief complaint of shortness of breath. Patient has history of COPD. Patient took his first dose of Brillinta today, he states that shortly after he began experiencing shortness of breath. Patient states he felt like he was having an anxiety attack. He denies any chest pain or palpitations. No fevers or chills. No cough, congestion, sore throat. No nausea, vomiting, diaphoresis. (Bushra Carranza) - Related Data Home Medications Medication Instructions Recorded Confirmed Finasteride [Proscar] 5 mg PO HS 05/07/22 05/07/22 Multivitamins, Thera [Multivitamin 1 tab PO DAILY 05/07/22 05/07/22 (formulary)] Tamsulosin [Flomax] 0.4 mg PO DAILY 05/07/22 05/07/22 Ubidecarenone [Q-Sorb Co Q-10] 200 mg PO DAILY 05/07/22 05/07/22 Previous Rx's Medication Instructions Recorded Acetaminophen Tab [Tylenol] 650 mg PO Q6HR PRN tab 05/11/22 Aspirin 81 mg PO DAILY 30 Days #30 tab 05/11/22 Atorvastatin [Lipitor] 10 mg PO HS 30 Days #30 tab 05/11/22 Ticagrelor [Brilinta] 90 mg PO BID 30 Days #60 tab 05/11/22 predniSONE [Deltasone] 60 mg PO DAILY 5 Days #15 tab 10/25/22 Allergies Allergy/AdvReac Type Severity Reaction Status Date / Time clopidogrel [From Plavix] Allergy Severe Anaphylaxis Verified 10/25/22 17:21 Review of Systems ROS Other: All systems not noted in ROS Statement are negative. <JanetPadmini - Last Filed: 10/25/22 17:51> ROS Other: All systems not noted in ROS Statement are negative. <Bushra Carranza - Last Filed: 10/26/22 17:01> ROS Statement: Those systems with pertinent positive or pertinent negative responses have been documented in the HPI. Past Medical History Past Medical History: COPD, Hypertension Additional Past Medical History / Comment(s): chest pain, abd aortic aneurysm History of Any Multi-Drug Resistant Organisms: None Reported Past Surgical History: Ablation, Heart Catheterization With Stent Additional Past Surgical History / Comment(s): left shoulder, hydrocele, prostate biopsy with cancer - no active tx. Past Anesthesia/Blood Transfusion Reactions: No Reported Reaction Date of Last Stent Placement:: unknown Past Psychological History: No Psychological Hx Reported Smoking Status: Former smoker Past Alcohol Use History: None Reported Past Drug Use History: None Reported - Past Family History Brother(s) Family Medical History: Cancer Additional Family Medical History / Comment(s): PROSTATE Sister(s) Family Medical History: Myocardial Infarction (ME) Mother Family Medical History: Myocardial Infarction (ME) Father Family Medical History: CVA/TIA <Padmini Gonzales - Last Filed: 10/25/22 17:51> General Exam Limitations: no limitations <JanetPadmini - Last Filed: 10/25/22 17:51> Limitations: no limitations General appearance: alert, in no apparent distress Head exam: Present: atraumatic, normocephalic, normal inspection Eye exam: Present: normal appearance Neck exam: Present: normal inspection, full ROM Respiratory exam: Present: wheezes. Absent: respiratory distress, rhonchi, stridor, accessory muscle use Cardiovascular Exam: Present: regular rate, normal rhythm, normal heart sounds. Absent: systolic murmur, diastolic murmur, rubs, gallop, clicks Neurological exam: Present: alert, oriented X3, CN II-XII intact Psychiatric exam: Present: normal affect, normal mood Skin exam: Present: warm, dry, intact, normal color. Absent: rash <Bushra Carranza - Last Filed: 10/26/22 17:01> - General Exam Comments Initial Comments: Visual Physical Exam Vital signs reviewed General: Well-appearing, nontoxic, no acute distress. Head: Normocephalic, atraumatic Eyes: PERRLA, EOMI ENT: Airway patent Chest: Nonlabored breathing Skin: No visual rash, normal skin tone Neuro: Alert and oriented 3 Musculoskeletal: No gross abnormalities (Janet,Padmini) Course Vital Signs 10/25/22 10/25/22 10/25/22 17:15 19:38 20:27 Temperature 97.5 F L Pulse Rate 78 59 L Respiratory 20 24 Rate Blood Pressure 158/68 O2 Sat by Pulse 98 Oximetry 10/25/22 10/25/22 20:38 21:44 Temperature Pulse Rate 61 76 Respiratory 18 Rate Blood Pressure 119/70 O2 Sat by Pulse 98 Oximetry Medical Decision Making - Lab Data Result diagrams: 10/25/22 19:55 10/25/22 19:55 <Bushra Carranza - Last Filed: 10/26/22 17:01> - Medical Decision Making Was pt. sent in by a medical professional or institution ([facility], ADAPTIVE PHYSICAL EDUCATION SPECIALIST, urgent care, hospital, or half-way...) When possible be specific @ -No Did you speak to anyone other than the patient for history (EMS, parent, family, police, friend...)? What history was obtained from this source @ -No Did you review nursing and triage notes (agree or disagree)? Why? @ -I reviewed and agree with nursing and triage notes Were old charts reviewed (outside hosp., previous admission, EMS record, old EKG, old radiological studies, urgent care reports/EKG's, half-way records)? Report findings @ -No old charts were reviewed Differential Diagnosis (chest pain, altered mental status, abdominal pain women, abdominal pain men, vaginal bleeding, weakness, fever, dyspnea, syncope, headache, dizziness, GI bleed, back pain, seizure, CVA, palpatations, mental health, musculoskeletal)? @ -MDM Differential Dyspnea: Coronary syndrome, arrhythmia, tamponade, asthma, COPD, pulmonary embolism, pneumonia, pneumothorax, pulmonary effusion, anaphylaxis, diabetic ketoacidosis, flailed chest, pulmonary contusion, diaphragmatic rupture, anemia, neuromuscular this is not meant to be an all-inclusive list. EKG interpreted by me (3pts min.). @ -Sinus rhythm ventricular rate 74. VA interval 177. QRS 97. QT 390. QTC 417. No ischemic changes. X-rays interpreted by me (1pt min.). @ -Chest x-ray shows no acute process, COPD changes are noted CT interpreted by me (1pt min.). @ -None done U/S interpreted by me (1pt. min.). @ -None done What testing was considered but not performed or refused? (CT, X-rays, U/S, labs)? Why? @ -None What meds were considered but not given or refused? Why? @ -None Did you discuss the management of the patient with other professionals (professionals i.e. , PA, ADAPTIVE PHYSICAL EDUCATION SPECIALIST, lab, RT, psych nurse, social worker health services, service specialist, teacher, information technology officer, case management assistant)? Give summary @ -No Was smoking cessation discussed for >3mins.? @ -No Was critical care preformed (if so, how long)? @ -No Were there social determinants of health that impacted care today? How? (Homelessness, low income, unemployed, alcoholism, drug addiction, transportation, low edu. Level, literacy, decrease access to med. care, care home, rehab)? @ -No Was there de-escalation of care discussed even if they declined (Discuss DNR or withdrawal of care, Hospice)? DNR status @ -No What co-morbidities impacted this encounter? (DM, HTN, Smoking, COPD, CAD, Cancer, CVA, ARF, Chemo, Hep., AIDS, mental health diagnosis, sleep apnea, morbid obesity)? @ -COPD Was patient admitted / discharged? Hospital course, mention meds given and route, prescriptions, significant lab abnormalities, going to OR and other pertinent info. @ -Patient is a 72-year-old male presenting with chief complaint of shortness of breath, history of COPD. On physical examination diffuse expiratory wheezes are heard on auscultation. Patient is given Solu-Medrol 125 and DuoNeb breathing treatment. Lab work is essentially unremarkable, chest x-ray shows no acute process. On reassessment patient reports great improvement in his symptoms, he would like to be discharged home. He is given a five-day course of prednisone for home and instructed to continue his nebulizer treatments as prescribed. Follow-up with PCP. Report back to ER with any new or worsening symptoms. Discussed return parameters and answered all questions. Patient conveyed verbal understanding and agreed to the plan. I discussed this case in detail with my attending Dr. Reyna Undiagnosed new problem with uncertain prognosis? @ -No Drug Therapy requiring intensive monitoring for toxicity (Heparin, Nitro, Insulin, Cardizem)? @ -No Were any procedures done? @ -No Diagnosis/symptom? @ -COPD exacerbation Acute, or Chronic, or Acute on Chronic? @ -Acute Uncomplicated (without systemic symptoms) or Complicated (systemic symptoms)? @ -Uncomplicated Side effects of treatment? @ -No Exacerbation, Progression, or Severe Exacerbation? @ -Exacerbation Poses a threat to life or bodily function? How? (Chest pain, USA, ME, pneumonia, PE, COPD, DKA, ARF, appy, cholecystitis, CVA, Diverticulitis, Homicidal, Suicidal, threat to staff... and all critical care pts) @ -Potentially but unlikely in this scenario (Bushra Carranza) - Lab Data Lab Results 10/25/22 10/25/22 10/25/22 Range/Units 19:55 19:55 19:55 WBC 6.6 (3.8-10.6) k/uL RBC 4.63 (4.30-5.90) m/uL Hgb 14.5 (13.0-17.5) gm/dL Hct 43.4 (39.0-53.0) % MCV 93.7 (80.0-100.0) fL MCH 31.3 (25.0-35.0) pg MCHC 33.4 (31.0-37.0) g/dL RDW 13.0 (11.5-15.5) % Plt Count 205 (150-450) k/uL MPV 8.5 Neutrophils % 73 % Lymphocytes % 13 % Monocytes % 9 % Eosinophils % 2 % Basophils % 1 % Neutrophils # 4.8 (1.3-7.7) k/uL Lymphocytes # 0.8 L (1.0-4.8) k/uL Monocytes # 0.6 (0-1.0) k/uL Eosinophils # 0.1 (0-0.7) k/uL Basophils # 0.1 (0-0.2) k/uL PT 9.9 (9.0-12.0) sec INR 0.9 (<1.2) APTT 25.2 (22.0-30.0) sec Sodium 139 (137-145) mmol/L Potassium 4.0 (3.5-5.1) mmol/L Chloride 103 (98-107) mmol/L Carbon Dioxide 27 (22-30) mmol/L Anion Gap 9 mmol/L BUN 13 (9-20) mg/dL Creatinine 0.73 (0.66-1.25) mg/dL Est GFR (CKD-EPI)AfAm >90 (>60 ml/min/1.73 sqM) Est GFR (CKD-EPI)NonAf >90 (>60 ml/min/1.73 sqM) Glucose 73 L (74-99) mg/dL Calcium 9.0 (8.4-10.2) mg/dL Total Bilirubin 0.5 (0.2-1.3) mg/dL AST 24 (17-59) U/L ALT 20 (4-49) U/L Alkaline Phosphatase 78 (38-126) U/L Troponin I (0.000-0.034) ng/mL Total Protein 7.3 (6.3-8.2) g/dL Albumin 4.2 (3.5-5.0) g/dL Influenza Type A (PCR) (Not Detectd) Influenza Type B (PCR) (Not Detectd) RSV (PCR) (Not Detectd) SARS-CoV-2 (PCR) (Not Detectd) 10/25/22 10/25/22 Range/Units 19:55 20:00 WBC (3.8-10.6) k/uL RBC (4.30-5.90) m/uL Hgb (13.0-17.5) gm/dL Hct (39.0-53.0) % MCV (80.0-100.0) fL MCH (25.0-35.0) pg MCHC (31.0-37.0) g/dL RDW (11.5-15.5) % Plt Count (150-450) k/uL MPV Neutrophils % % Lymphocytes % % Monocytes % % Eosinophils % % Basophils % % Neutrophils # (1.3-7.7) k/uL Lymphocytes # (1.0-4.8) k/uL Monocytes # (0-1.0) k/uL Eosinophils # (0-0.7) k/uL Basophils # (0-0.2) k/uL PT (9.0-12.0) sec INR (<1.2) APTT (22.0-30.0) sec Sodium (137-145) mmol/L Potassium (3.5-5.1) mmol/L Chloride (98-107) mmol/L Carbon Dioxide (22-30) mmol/L Anion Gap mmol/L BUN (9-20) mg/dL Creatinine (0.66-1.25) mg/dL Est GFR (CKD-EPI)AfAm (>60 ml/min/1.73 sqM) Est GFR (CKD-EPI)NonAf (>60 ml/min/1.73 sqM) Glucose (74-99) mg/dL Calcium (8.4-10.2) mg/dL Total Bilirubin (0.2-1.3) mg/dL AST (17-59) U/L ALT (4-49) U/L Alkaline Phosphatase (38-126) U/L Troponin I <0.012 (0.000-0.034) ng/mL Total Protein (6.3-8.2) g/dL Albumin (3.5-5.0) g/dL Influenza Type A (PCR) Not Detected (Not Detectd) Influenza Type B (PCR) Not Detected (Not Detectd) RSV (PCR) Not Detected (Not Detectd) SARS-CoV-2 (PCR) Not Detected (Not Detectd) Disposition <Padmini Gonzales - Last Filed: 10/25/22 17:51> Is patient prescribed a controlled substance at d/c from ED?: No Time of Disposition: 21:36 <Bushra Carranza - Last Filed: 10/26/22 17:01> Clinical Impression: COPD (chronic obstructive pulmonary disease) Disposition: HOME SELF-CARE Condition: Good Instructions (If sedation given, give patient instructions): COPD (Chronic Obstructive Pulmonary Disease) (ED) Additional Instructions: Follow-up with PCP. Report back to ER with any new or worsening symptoms. Take medication as prescribed. Prescriptions: predniSONE [Deltasone] 60 mg PO DAILY 5 Days #15 tab Referrals: Sierra Rodriguez MD [Primary Care Provider] - 1-2 days
--- NOTE | 2022-10-25 18:42 | XR ---
EXAMINATION TYPE: XR chest 2V DATE OF EXAM: 10/25/2022 6:05 PM COMPARISON: Chest radiographs from TECHNIQUE: XR chest 2V Frontal and lateral views of the chest. CLINICAL INDICATION:Male, 72 years old with history of difficulty breathing; FINDINGS: Lungs/Pleura: There is flattening of the diaphragm with increased lucency of the lungs. No evidence o f pneumothorax, pleural effusion or focal consolidation. Pulmonary vascularity: Unremarkable. Heart/mediastinum: Cardiomediastinal silhouette is unremarkable. Musculoskeletal: No acute osseous pathology. IMPRESSION: 1. No acute cardiopulmonary disease process. 2. COPD changes.
[2022-10-25] MEDS: methylPREDNISolone SOD SUCCI 125 MG/2 ML VIAL IV STA (20:12)
[2022-10-25] MEDS: IPRATROPIUM-ALBUTEROL 3 ML NEB INHALATION STA (20:25)
[2022-10-25 20:34] LABS: INR 0.9 (<1.2); Partial Thromboplastin Time 25.2 sec (22.0-30.0); Prothrombin Time 9.9 sec (9.0-12.0)
[2022-10-25 20:37] LABS: Basophils # (A) 0.1 k/uL (0-0.2); Basophils % (A) 1 %; Eosinophils # (A) 0.1 k/uL (0-0.7); Eosinophils % (A) 2 %; HCT 43.4 % (39.0-53.0); HGB 14.5 gm/dL (13.0-17.5); Lymphocytes # (A) 0.8 k/uL (1.0-4.8); Lymphocytes % (A) 13 %; MCH 31.3 pg (25.0-35.0); MCHC 33.4 g/dL (31.0-37.0); MCV 93.7 fL (80.0-100.0); Mean Platelet Volume 8.5; Monocytes # (A) 0.6 k/uL (0-1.0); Monocytes % (A) 9 %; Neutrophils # (A) 4.8 k/uL (1.3-7.7); Neutrophils % (A) 73 %; Platelet Count 205 k/uL (150-450); RBC 4.63 m/uL (4.30-5.90); WBC 6.6 k/uL (3.8-10.6)
[2022-10-25 20:39] LABS: ALT 20 U/L (4-49); AST 24 U/L (17-59); African American GFR (CKD) >90 (>60 ml/min/1.73 sqM); Albumin 4.2 g/dL (3.5-5.0); Alkaline Phosphatase 78 U/L (38-126); Anion Gap 9 mmol/L; Blood Urea Nitrogen 13 mg/dL (9-20); Carbon Dioxide 27 mmol/L (22-30); Chloride 103 mmol/L (98-107); Glucose 73 mg/dL (74-99); Non-African American GFR(CKD) >90 (>60 ml/min/1.73 sqM); Sodium 139 mmol/L (137-145); Total Bilirubin 0.5 mg/dL (0.2-1.3); Total Protein 7.3 g/dL (6.3-8.2)
[2022-10-25 21:45] VITALS: BP 119/70; PULSE 76; RESP 18
== END 2022-10-25 21:45 | disposition home or self-care (01) ==
LOC: EC 16:51
DX: J44.9 Chronic obstructive pulmonary disease, unspecified (principal); I10 Essential (primary) hypertension; Z88.8 Allergy status to other drugs, medicaments and biological substances; Z87.891 Personal history of nicotine dependence; Z20.822 Contact with and (suspected) exposure to COVID-19
CPT/HCPCS: 36415; 94640; 93005; 80053; 84484; 85025; 85610; 85730; 87636; 71046; 99285; 96374; J2930